=== PATIENT | male | born 1960 | race Caucasian/White ===

== ENCOUNTER 2020-06-15 09:15 | Outpatient (REF) | payer OTHER, SELFPAY ==
[2020-06-15 10:14] LABS: Hematocrit 46.3 % (42-52); Hemoglobin 15.4 g/dl (14.0-18.0); Mean Corpuscular HGB Conc 33.3 g/dl (31.0-36.0); Mean Corpuscular Hemoglobin 30.7 pg (27.0-33.0); Mean Corpuscular Volume 92.4 fL (80-98); Mean Platelet Volume 9.9 fL (9.4-12.4); Platelet Count 220 X10*3/uL (160-400); Red Blood Count 5.01 X10*6/uL (4.60-5.80); Red Cell Distribution Width 14.9 % (11.0-16.0); White Blood Count 6.6 X10*3/uL (4.8-10.8)
[2020-06-15 10:48] LABS: Alanine Aminotransferase 16 U/L (0-40); Albumin Level 4.2 g/dL (3.5-5.0); Alkaline Phosphatase 56 U/L (39-117); Anion Gap 12 (12-20); Aspartate Amino Transferase 18 U/L (5-37); Bilirubin Direct 0.4 mg/dL (0.0-0.5); Carbon Dioxide 28 mmol/L (22-29); Chloride 105 mmol/L (96-108); Cholesterol 209 mg/dL; Estimated Glomerular Filt Rate > 60; Glucose Random 82 mg/dL (60-115); HDL Cholesterol 69 mg/dL; LDL Cholesterol Calculated 129 mg/dl; Potassium 4.5 mmol/L (3.3-5.1); Sodium 140 mmol/L (135-145); Total Protein 6.4 g/dL (6.5-8.0); Triglycerides 57 mg/dL
[2020-06-15 10:53] LABS: Blood Urea Nitrogen 13 mg/dL (9-16); Calcium 8.8 mg/dL (8.4-10.2)
[2020-06-15 10:54] LABS: Glucose Urine UA NEG (NEG); Leukocyte Esterase Urine NEG (NEG); Nitrite Urine NEG (NEG); Specific Gravity - Urine 1.015 (1.005-1.025); Urine Blood NEG (NEG); Urine Ketones NEG (NEG); Urine Protein NEG (NEG-TRACE)
[2020-06-15 10:59] LABS: Thyroid Stimulating Hormone 0.56 uIU/mL (0.32-4.0)
[2020-06-15 11:01] LABS: Appearance Urine CLEAR; Color Urine YELLOW
[2020-06-18 12:16] LABS: Vitamin D 25-OH, D2 <4 ng/mL; Vitamin D 25-OH, D3 43 ng/mL; Vitamin D 25-OH, Total 43 ng/mL (30-100)
== END 2020-06-15 09:16 | disposition home or self-care (01) ==
LOC: HO.LAB 09:15
PROVIDERS: PCP Internal Medicine; Visit Provider Internal Medicine
DX: E78.00 Pure hypercholesterolemia, unspecified (principal)
CPT/HCPCS: 36415; 80048; 80061; 80076; 81003; 82306; 84443; 85027

== ENCOUNTER 2020-07-05 14:51 | Outpatient (REF) | payer OTHER, SELFPAY ==
--- NOTE | ~2020-07-05 | XR_ITS ---
EXAMINATION: XR KNEE, LEFT XR KNEE STANDING, BILATERAL CLINICAL INFORMATION: Left knee pain. COMPARISON: None TECHNIQUE: Standing AP view of both knees and lateral and sunrise view of the left knee. FINDINGS: Left: Bone alignment is normal. No fracture or dislocation is seen. There are small osteophytes at the patellofemoral joint. Joint spaces are otherwise normal. There is no joint effusion. Standing AP view of the right knee is unremarkable. XR/XR knee LT 2V IMPRESSION: Small osteophytes at the patellofemoral joint otherwise unremarkable examination.
--- NOTE | ~2020-07-05 | XR_ITS ---
EXAMINATION: XR KNEE, LEFT XR KNEE STANDING, BILATERAL CLINICAL INFORMATION: Left knee pain. COMPARISON: None TECHNIQUE: Standing AP view of both knees and lateral and sunrise view of the left knee. FINDINGS: Left: Bone alignment is normal. No fracture or dislocation is seen. There are small osteophytes at the patellofemoral joint. Joint spaces are otherwise normal. There is no joint effusion. Standing AP view of the right knee is unremarkable. XR/XR knee standing BI IMPRESSION: Small osteophytes at the patellofemoral joint otherwise unremarkable examination.
== END 2020-07-05 14:52 | disposition home or self-care (01) ==
LOC: HO.HOSX 14:51
PROVIDERS: Visit Provider Orthopaedic Surgery
DX: M25.561 Pain in right knee (principal); M25.562 Pain in left knee
CPT/HCPCS: 73560; 73565

== ENCOUNTER → 2020-07-06 09:03 | Outpatient (BNVA) | payer OTHER, SELFPAY | PROVIDERS: PCP Internal Medicine; Visit Provider Orthopaedic Surgery | DX: M22.2X2 Patellofemoral disorders, left knee (principal) | CPT/HCPCS: 99202 ==

== ENCOUNTER → 2020-07-07 15:01 | Outpatient (BNVA) | payer OTHER, SELFPAY | PROVIDERS: PCP Internal Medicine; Visit Provider Surgery Vascular Surgery | DX: I83.12 Varicose veins of left lower extremity with inflammation (principal) | CPT/HCPCS: 99202 ==

== ENCOUNTER 2020-07-14 12:55 | Outpatient (REF) | payer OTHER, SELFPAY ==
--- NOTE | ~2020-07-14 | US_ITS ---
EXAMINATION: BILATERAL LOWER EXTREMITY VENOUS ULTRASOUND (Reflux Exam) CLINICAL INDICATION: This is a 60-year-old male with a history of great saphenous vein ablation on the left. Varicose veins. COMPARISON: None. TECHNIQUE: Color flow triplex imaging and compression Doppler was performed to evaluate both the deep and the superficial systems bilaterally. To evaluate the superficial system, the examination was performed in the upright position. Color-flow Doppler ultrasound and compression ultrasound were utilized. In addition, maneuvers were utilized to demonstrate reflux. FINDINGS: 1. DEEP VENOUS ULTRASOUND OF THE RIGHT LOWER EXTREMITY: Common Femoral Vein: There is reflux seen in the left common femoral vein. Femoral vein: Compressible, normal color flow and augmentation. No reflux. The reflux time is 2588 ms. Popliteal Vein: There is reflux seen in the left popliteal vein. The reflux time is 2924 ms. Deep Reflux: There is evidence of reflux in the deep system in either the common femoral vein or the popliteal vein. . There is no evidence of a Delgado's cyst. 2. SUPERFICIAL ULTRASOUND WITH DOPPLER OF RIGHT LOWER EXTREMITY GREAT SAPHENOUS VEIN: Saphenofemoral junction: 0.7 cm. There is no reflux at the junction. Mid thigh: 0.3 cm. There is reflux of 1628 ms. Above knee: 0.4 cm. There is no reflux at this level. Below knee: 0.5 cm. No reflux was detected. Mid calf: 0.3 cm. There is no reflux at this level and below. Ankle: 0.2 cm GSV REFLUX: No evidence of reflux. DUPLICATED GREAT SAPHENOUS VEIN: There is a 0.3 cm duplicated lateral great saphenous vein without evidence of reflux. SMALL SAPHENOUS VEIN: Upper: 0.3 cm Lower: 0.3 cm SSV REFLUX: No evidence of reflux. VEIN OF GIACOMINI: None Imaged. PERFORATORS: There are 0.3 cm perforators in the proximal calf with a reflux time of 820 ms. VARICOSITIES: There are 0.5 and 0.4 cm varicose veins at the knee in the proximal calf with greater than 3 seconds of reflux. 3. DEEP VENOUS ULTRASOUND OF THE LEFT LOWER EXTREMITY: Common Femoral Vein: Compressible, normal respiratory variation and augmented flow. Femoral vein: There is deep vein reflux in the femoral vein of greater than 3 seconds. Popliteal Vein: Compressible, normal augmentation. Deep Reflux: There is some evidence of reflux in the deep system in either the common femoral vein or the popliteal vein. There is a 3.8 x 1.3 x 1.6 cm left popliteal Delgado's cyst. 4. SUPERFICIAL ULTRASOUND WITH DOPPLER OF LEFT LOWER EXTREMITY GREAT SAPHENOUS VEIN: Saphenofemoral junction: 0.5 cm. There is no reflux. The remainder the great saphenous vein is occluded consistent with previous therapy. GSV REFLUX: No evidence of reflux. DUPLICATED GREAT SAPHENOUS VEIN: There is a 0.4 cm duplicated lateral great saphenous vein without reflux. SMALL SAPHENOUS VEIN: Upper: 0.2 cm Lower: 0.2 cm SSV REFLUX: No evidence of reflux. VEIN OF GIACOMINI: None Imaged. PERFORATORS: There is a 0.3 cm tray line supervisor in the mid calf without reflux. VARICOSITIES: There are 0.4 and 1.1 cm varicose veins in the left leg. At the popliteal fossa there is reflux of 2916 ms. There are chronic changes within the varicose veins suggesting previous superficial thrombophlebitis. Superficial fat thrombophlebitis was present on a previous study dated 10/05/2008. This may be the remnant. US/US venous duplex LE BI IMPRESSION: 1. There is a patent right great saphenous vein without evidence of reflux at the junction. There is isolated reflux in the mid thigh. 2. 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 3. There is a patent right small saphenous vein without evidence of reflux. 4. There is deep vein reflux in the right common femoral vein and right popliteal vein, respectively. 5. There are varicose veins and tray line supervisor's with reflux in the right lower extremity. 6. The left great saphenous vein appears to be occluded and without reflux. 7. There is a duplicated left lateral great saphenous vein without reflux. 8. There is a left small saphenous vein without evidence of reflux. 9. There are varicose veins in the left leg with reflux. There is some fibrinous changes within these veins consistent with thrombophlebitis. The acuity of the thrombophlebitis is unclear. This may be residual from a previous event dated 10/05/2008.
== END 2020-07-14 12:56 | disposition home or self-care (01) ==
LOC: HO.US 12:55
PROVIDERS: PCP Internal Medicine; Visit Provider Surgery Vascular Surgery
DX: I83.893 Varicose veins of bilateral lower extremities with other complications (principal); I83.12 Varicose veins of left lower extremity with inflammation
CPT/HCPCS: 93970

== ENCOUNTER → 2020-07-19 09:26 | Outpatient (BNVA) | payer OTHER, SELFPAY | PROVIDERS: PCP Internal Medicine; Visit Provider Surgery Vascular Surgery ==

== ENCOUNTER 2020-07-25 11:30 | Day surgery (SDC) | payer OTHER, SELFPAY ==
--- NOTE | 2020-07-21 11:49 | HO.ANESPROP2 ---
Documented by User: Charito Pandya 07/21/20 11:50 HPI - Anesthesia Eval Consult details Narrative: 60yo M for Left Phlebectomy,micro PMFSH Active Problems Active Problems: All Active Problems (Updated 07/07/20 @ 15:28 by Roman Boyd MD) Varicose veins of left lower extremity with inflammation (Acute) Patellofemoral pain syndrome of left knee (Acute) Hypercholesterolemia (Acute) Left knee pain (Acute) Varicose veins of bilateral lower extremities with pain (Acute) Past Medical History Medical History Hypercholesterolemia Varicose veins of bilateral lower extremities with pain Family History Family History Father Lymphoma Mother Dementia Social History Social History Smoking Status: Current every day smoker Tobacco Type: Cigarette and E-Cigarette Cigarettes Per Day: 1 Use of substances other than those prescribed or required for medical reasons: No Have you been hit, kicked, punched, or otherwise hurt by someone within the past year? 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 Handed Meds Allergies Allergy/AdvReac Type Severity Reaction Status Date / Time nicotine Allergy Intermediate HIVES TO Verified 07/25/20 12:09 NICOTINE PATCH ciprofloxacin [CIPROFLOXACIN] Allergy Unknown HIVES Verified 07/25/20 12:09 Cipro Allergy Unknown hives Uncoded 07/25/20 12:09 Home Medications Medication Instructions Recorded Confirmed Last Taken Type ibuprofen 200 mg tablet 200 mg PO Q6H PRN 06/15/20 Unknown History Exam Exam Date and Time: July 21, 2020 114 Assessment and Plan Assessment Anesthesia Assessment: Chart Reviewed Documented by User: Yulissa Conley 07/25/20 12:58 PMFSH Past Medical History Medical History Hypercholesterolemia Varicose veins of bilateral lower extremities with pain Family History Family History Father Lymphoma Mother Dementia Social History Social History Smoking Status: Current every day smoker Tobacco Type: Cigarette and E-Cigarette Cigarettes Per Day: 1 Use of substances other than those prescribed or required for medical reasons: No Have you been hit, kicked, punched, or otherwise hurt by someone within the past year? 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 Handed Meds Allergies Allergy/AdvReac Type Severity Reaction Status Date / Time nicotine Allergy Intermediate HIVES TO Verified 07/25/20 12:09 NICOTINE PATCH ciprofloxacin [CIPROFLOXACIN] Allergy Unknown HIVES Verified 07/25/20 12:09 Cipro Allergy Unknown hives Uncoded 07/25/20 12:09 Home Medications Medication Instructions Recorded Confirmed Last Taken Type ibuprofen 200 mg tablet 200 mg PO Q6H PRN 06/15/20 Unknown History Exam Airway Mallampati Class: II TM Dist: >3cm Neck ROM: Full Heart: RrR Lungs: CTA BL Other: patient tapered off predinose for allergy/repiratory Assessment and Plan Assessment Anesthesia Assessment: Anesthesia Plan Discussed and Chart Reviewed Final Anesthetic Review NPO: Yes ASA Class: III Final Preanesthetic Review: No Changes in Pt Med Stat and Consent Obtained/Reviewed Patient Risk: Intermediate Procedure Risk: Intermediate Anesthetic Plan Anesthetic Plan: GA Disposition: Standard PACU
[2020-07-25] VITALS (9 sets, daily range): BP systolic 132–149; BP diastolic 67–86; PULSE 59–67; RESP 12–18; TEMP 36.1–37.1; O2SAT 96–100; BMI 24.4
[2020-07-25] MEDS: Lactated Ringers 1,000 ML 100 ML IVCONT (12:26)
--- NOTE | 2020-07-25 13:17 | MHC.SHP ---
Pre-Procedural Eval Section B Chief Complaint: varicose veins Allergies: Allergies Allergy/AdvReac Type Severity Reaction Status Date / Time nicotine Allergy Intermediate HIVES TO Verified 07/25/20 12:09 NICOTINE PATCH ciprofloxacin [CIPROFLOXACIN] Allergy Unknown HIVES Verified 07/25/20 12:09 Cipro Allergy Unknown hives Uncoded 07/25/20 12:09 Plan I have reviewed the history and physical and performed a pertinent physical examination on my patient. No changes have occurred unless specified.
--- NOTE | 2020-07-25 14:47 | W.PM.OPN ---
Operative Note Operative Note Date of Service: 07/25/20 Narrative: Pre and postoperative Diagnosis: Left Leg varicose veins with inflammation Procedure: 1. Left leg Microphlebectomy - (25) 2. Ligation venous cluster Anesthesia: General Specimens: 1 Drains: None Estimated blood loss minimal Varicose veins were marked in the standing position on the left leg and the patient was then placed in the supine position. The left lower extremity was prepared and draped to allow knee flexion in the sterile field. The patient had large superficial varicose veins with significant symptoms of pain. It was therefore determined to perform microphlebectomies of the clusters of varicose veins. The patient had bulging varicose veins which were previously marked in the standing position. A small stab incision was made longitudinally directly overlying the varicose vein in the calf and the varicose vein was grasped with a hemostat aided by a vein hook. It was then dissected as far proximally and distally as possible and avulsed. A total of 25 stab incisions were made and the procedure of stab phlebectomies was repeated 25 times. In addition a left posterior calf venous cluster was identified. We made an incision over this area. We identified the base and this was ligated with a 3-0 poly Sorb suture. Residual varicosities were removed from this posterior calf incision. Hemostasis was checked and stab incision sites were closed with steri-strips and sterile dressing was given with gauze and krilex wrap followed by an palma bandage. There were no complications and blood loss was minimal. Post-Op instructions were given and a follow-up appointment was recommended.
[2020-07-25] MEDS: oxyCODONE HCl Immed Release 5 MG TABLET PO (15:08)
[2020-07-25] MEDS: fentaNYL citrate/PF 100 MCG/2 ML VIAL 50 MCG IVPUSH (15:08)
== END 2020-07-25 16:10 | disposition home or self-care (01) ==
PROVIDERS: PCP Internal Medicine; Visit Provider Surgery Vascular Surgery
PROC: (CPT 37766; principal; 2020-07-25 13:00)
DX: I83.12 Varicose veins of left lower extremity with inflammation (principal); F17.210 Nicotine dependence, cigarettes, uncomplicated; F17.290 Nicotine dependence, other tobacco product, uncomplicated; Z88.1 Allergy status to other antibiotic agents
CPT/HCPCS: 37766; 37785; 88304; J0690; J1100; J2250; J2405; J3010

== ENCOUNTER → 2020-08-09 09:07 | Outpatient (BNVA) | payer OTHER, SELFPAY | PROVIDERS: PCP Internal Medicine; Visit Provider Surgery Vascular Surgery ==

== ENCOUNTER 2020-12-23 08:25 | Outpatient (REF) | payer OTHER, SELFPAY ==
[2020-12-23 12:07] LABS: Alanine Aminotransferase 28 U/L (0-40); Albumin Level 4.1 g/dL (3.5-5.0); Alkaline Phosphatase 79 U/L (39-117); Aspartate Amino Transferase 36 U/L (5-37); Bilirubin Direct 0.3 mg/dL (0.0-0.5); Bilirubin Total 0.8 mg/dL (0.0-1.0); Total Protein 6.6 g/dL (6.5-8.0)
== END 2020-12-23 08:26 | disposition home or self-care (01) ==
LOC: HO.HMGCLDS 08:25
PROVIDERS: PCP Internal Medicine; Visit Provider Physician Assistant
DX: B37.2 Candidiasis of skin and nail (principal)
CPT/HCPCS: 36415; 80076

== ENCOUNTER 2021-05-08 13:03 | Outpatient (REF) | payer OTHER, SELFPAY ==
[2021-05-08 14:16] LABS: Hematocrit 44.8 % (42.0-52.0); Hemoglobin 15.2 g/dl (14.0-18.0); Mean Corpuscular HGB Conc 33.9 g/dl (31.0-36.0); Mean Corpuscular Volume 91.2 fL (80.0-98.0); Mean Platelet Volume 9.7 fL (9.4-12.4); Platelet Count 247 X10*3/uL (160-400); Red Blood Count 4.91 X10*6/uL (4.60-5.80); Red Cell Distribution Width 14.6 % (11.0-16.0); White Blood Count 10.1 X10*3/uL (4.8-10.8)
[2021-05-08 14:31] LABS: Appearance Urine CLEAR; Color Urine STRAW; Glucose Urine UA NEG (NEG); Leukocyte Esterase Urine NEG (NEG); Nitrite Urine NEG (NEG); Urine Blood NEG (NEG); Urine Ketones NEG (NEG); Urine Protein NEG (NEG-TRACE)
[2021-05-08 14:40] LABS: Alanine Aminotransferase 25 U/L (0-40); Albumin Level 4.1 g/dL (3.5-5.0); Alkaline Phosphatase 64 U/L (39-117); Anion Gap 13 (12-20); Aspartate Amino Transferase 25 U/L (5-37); Bilirubin Direct 0.2 mg/dL (0.0-0.5); Bilirubin Total 0.5 mg/dL (0.0-1.0); Blood Urea Nitrogen 15 mg/dL (9-16); Calcium 9.6 mg/dL (8.4-10.2); Carbon Dioxide 27 mmol/L (22-29); Chloride 105 mmol/L (96-108); Cholesterol 260 mg/dL; Estimated Glomerular Filt Rate > 60; Glucose Random 88 mg/dL (60-115); HDL Cholesterol 54 mg/dL; LDL Cholesterol Calculated 187 mg/dl; Potassium 4.7 mmol/L (3.3-5.1); Sodium 140 mmol/L (135-145); Total Protein 6.5 g/dL (6.5-8.0); Triglycerides 97 mg/dL
[2021-05-08 15:02] LABS: Thyroid Stimulating Hormone 0.96 uIU/mL (0.32-4.0)
[2021-05-12 16:06] LABS: Testosterone, Free 56.3 pg/mL (35.0-155.0); Testosterone, Total 626 ng/dL (250-1100)
== END 2021-05-08 13:04 | disposition home or self-care (01) ==
LOC: HO.LAB 13:03
PROVIDERS: PCP Internal Medicine; Visit Provider Internal Medicine
DX: E78.00 Pure hypercholesterolemia, unspecified (principal); I83.813 Varicose veins of bilateral lower extremities with pain
CPT/HCPCS: 36415; 80048; 80061; 80076; 81003; 84402; 84403; 84443; 85027

== ENCOUNTER 2022-02-08 13:47 | Emergency (ER) | payer SELFPAY | END 2022-02-08 14:34 | disposition left against medical advice (07) | PROVIDERS: Emergency Provider Emergency Medicine; PCP Internal Medicine | DX: M79.604 Pain in right leg (principal) ==

== ENCOUNTER 2022-04-13 08:38 | Outpatient (REF) | payer OTHER, SELFPAY ==
[2022-04-13 09:25] LABS: Hematocrit 48.3 % (42.0-52.0); Mean Corpuscular HGB Conc 33.1 g/dl (31.0-36.0); Mean Corpuscular Hemoglobin 30.3 pg (27.0-33.0); Mean Corpuscular Volume 91.5 fL (80.0-98.0); Mean Platelet Volume 9.7 fL (9.4-12.4); Platelet Count 233 X10*3/uL (160-400); Red Blood Count 5.28 X10*6/uL (4.60-5.80); White Blood Count 6.1 X10*3/uL (4.8-10.8)
[2022-04-13 09:57] LABS: Alanine Aminotransferase 49 U/L (0-40); Albumin Level 4.3 g/dL (3.5-5.0); Alkaline Phosphatase 79 U/L (39-117); Anion Gap 11 (12-20); Aspartate Amino Transferase 36 U/L (5-37); Bilirubin Direct 0.4 mg/dL (0.0-0.5); Bilirubin Total 1.7 mg/dL (0.0-1.0); Blood Urea Nitrogen 15 mg/dL (9-16); Calcium 9.5 mg/dL (8.4-10.2); Carbon Dioxide 31 mmol/L (22-29); Chloride 102 mmol/L (96-108); Cholesterol 175 mg/dL; Estimated Glomerular Filt Rate > 60; Glucose Random 91 mg/dL (60-115); HDL Cholesterol 45 mg/dL; LDL Cholesterol Calculated 111 mg/dl; Potassium 4.4 mmol/L (3.3-5.1); Sodium 140 mmol/L (135-145); Total Protein 6.7 g/dL (6.5-8.0); Triglycerides 95 mg/dL
== END 2022-04-13 08:39 | disposition home or self-care (01) ==
LOC: HO.LAB 08:38
PROVIDERS: PCP Internal Medicine; Visit Provider Internal Medicine
DX: M67.912 Unspecified disorder of synovium and tendon, left shoulder (principal); I83.12 Varicose veins of left lower extremity with inflammation; I82.401 Acute embolism and thrombosis of unspecified deep veins of right lower extremity; E78.00 Pure hypercholesterolemia, unspecified; F17.200 Nicotine dependence, unspecified, uncomplicated; Z71.6 Tobacco abuse counseling
CPT/HCPCS: 20610; 36415; 80048; 80061; 80076; 84443; 85027; J1100

== ENCOUNTER 2022-04-13 08:51 | Outpatient (REF) | payer OTHER, SELFPAY ==
--- NOTE | ~2022-04-13 | XR_ITS ---
EXAMINATION: XR SHOULDER, LEFT CLINICAL INFORMATION: Left shoulder pain COMPARISON: None TECHNIQUE: AP external rotation, Grashey, scapular Y, and axillary views of the left shoulder. FINDINGS: The bones and soft tissues are normal. No fracture. Glenohumeral and acromioclavicular alignment is anatomic with normal joint space. No abnormal soft tissue calcifications. XR/XR shoulder LT min 2V IMPRESSION: Unremarkable left shoulder.
== END 2022-04-13 08:52 | disposition home or self-care (01) ==
LOC: HO.HOSX 08:51
PROVIDERS: Visit Provider Orthopaedic Surgery
DX: M25.512 Pain in left shoulder (principal)
CPT/HCPCS: 73030

== ENCOUNTER → 2022-05-07 11:21 | Outpatient (BNVA) | payer OTHER, SELFPAY | PROVIDERS: PCP Internal Medicine; Visit Provider Orthopaedic Surgery | DX: Z13.89 Encounter for screening for other disorder (principal) ==

== ENCOUNTER → 2022-05-15 13:19 | Outpatient (BNVA) | payer OTHER, SELFPAY | PROVIDERS: PCP Internal Medicine; Visit Provider Surgery Vascular Surgery | DX: Z13.89 Encounter for screening for other disorder (principal) ==

== ENCOUNTER 2022-05-18 09:00 | Outpatient (RCR) | payer OTHER, SELFPAY ==
--- NOTE | 2022-04-19 14:05 | MHC.PT.EP ---
[facility] [place] Office [place] Office [place] Office [address] Cyndee Poe [address] [phone] F: [phone] F: [phone] F: [phone] F: [phone] Physical Therapy Plan of Care Date of Evaluation: Date of Surgery: n/a Diagnosis: dysfunction of rotator cuff Assessment: Patient is a 62 year old male presenting to PT with complaints of pain in his L shoulder. Pt reports onset of pain began September 2021 due to hearing a pop when lifting a piece of drywall. He presents today with impairments in pain, ROM, shoulder strength, posture. 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 Pt expresses senior living goal of returning to PLOF, and is motivated to work towards this in PT. Clinical presentation today is most consistent with signs and sx associated with possible RC involvement and pt will benefit from skilled PT to address the following problems and impairments noted upon evaluation: pain, ROM, shoulder strength, posture. These problems limit the patient with the following functional activities: reaching, lifting, ADLs. The prescribed treatment plan of care is medically necessary. Co-morbidities of DVT February 2022 and currently taking eliquis were identified and taken into considerations of plan of care. Pt was educated on HEP, role of PT, prognosis, POC. Frequency and Duration: The patient will be seen 2 x week x 4 weeks Short Term Goals: Pt will demonstrate improved ROM by 20 degrees in all directions in 2 weeks. Pt will demonstrate shoulder strength improved to at least 3/5 in 2 weeks. Pt will demonstrate compliance with initial HEP in 2 weeks. Family Living Educator Goals: Pt will demonstrate improved SPADI score by 13 points in 4 weeks for improved functional mobility. Pt will demonstrate improved ability to reach and lift household items for return to PLOF in 4 weeks. Pt will demonstrate improved ability to don and doff jacket and shirts in 4 weeks for improved functional mobility. Treatment Plan: Modalities to reduce pain, spasms and effusion. Manual therapy to restore motion and function. Therapeutic exercise to improve strength and flexibility. Neuromuscular re-education for posture and balance. Therapeutic activities to return to functional activities of daily living. Electronically signed by: Marycruz Durand, PT, DPT, ATC Please sign and return to therapist. Thank you for your referral.
--- NOTE | 2022-06-21 08:13 | MHC.PT.DC ---
[facility] [place] Office [place] Office [place] Office [address] Cyndee Poe [address] [facility] [phone] F: [phone] F: [phone] F: [phone] F: [phone] Physical Therapy Discharge Report Diagnosis: dysfunction of rotator cuff Date of Surgery: n/a Date of Evaluation: 04/19/22 Date of Discharge: 06/21/22 Treatments to Date: 4 Cancellations to Date: 1 No Shows to Date: 0 Discharge Status: Discharge Summary: Pt has not returned to skilled PT in >30 days. Pt to be d/c at this time. Electronically signed by: Marycruz Durand, PT, DPT, ATC Please sign and return to therapist. Thank you for your referral.
== END 2022-06-21 08:13 | disposition home or self-care (01) ==
LOC: HO.PTCHIC 09:00
PROVIDERS: PCP Internal Medicine; Visit Provider Orthopaedic Surgery
DX: M75.02 Adhesive capsulitis of left shoulder (principal); M67.912 Unspecified disorder of synovium and tendon, left shoulder
CPT/HCPCS: 97110; 97161

== ENCOUNTER 2023-01-21 13:13 | Emergency (ER) | payer OTHER, SELFPAY ==
--- NOTE | ~2023-01-21 | CT_ITS ---
EXAMINATION: CT SOFT TISSUE NECK WITH CONTRAST CLINICAL INFORMATION: Swelling. Known facial abscess. COMPARISON: Brain MRI 08/09/2021. TECHNIQUE: Following the intravenous administration of 60 mL of Omnipaque 350 intravenous contrast, helical imaging was performed in the axial plane with generation of coronal and sagittal reformatted images. This CT examination was performed using dose optimization techniques as appropriate, variously including the following: *Automated exposure control *Adjustment of mA and/or kV according to patient size (this includes techniques or standardized protocols for targeted exams where dose is matched to indication/reason for exam; i.e. extremities or head) *Use of iterative reconstruction technique DLP: 649 mGy-cm FINDINGS: There is a periapical lucencies surrounding the root of the right first mandibular molar that erodes through the buccal cortex of the right mandibular body. This finding is well depicted on axial image 62 of 157 series 4. Due to the extent of streak artifact related to the patient's dental hardware is difficult to exclude the possibility of a small adjoining subperiosteal abscess. Extensive swelling within the subcutaneous soft tissues of the right face representing edema and/or cellulitis. There are a few small reactive right level I and II cervical lymph nodes. No evidence of septic thrombophlebitis. Pharyngeal mucosal spaces are grossly symmetric. Parapharyngeal and retromaxillary fat is preserved. Head Of Cytogenetics spaces are grossly symmetric. The tongue base and epiglottis are normal. Preepiglottic fat is preserved. Glottic and subglottic airways are patent. The thyroid gland is normal and the remainder of the visualized visceral soft tissues are normal. Lung apices are clear. The aortic arch apex is normal. Cervical carotid and vertebral arteries are grossly patent. The skull base is intact. No mastoid middle ear effusion. Limited visualization of intracranial anatomy reveals no abnormal finding. Specifically no midline shift or hydrocephalus. There is moderate to severe paranasal sinus disease. CT/CT soft tissue neck w IV con IMPRESSION: There is a periapical lucency surrounding the root of the right first mandibular molar that erodes through the buccal cortex of the right mandibular body. Due to the extent of streak artifact related to the patient's dental hardware is difficult to exclude the possibility of a small adjoining subperiosteal abscess. Extensive swelling within the subcutaneous soft tissues of the right face representing edema and/or cellulitis. No evidence of septic thrombophlebitis.
--- NOTE | 2023-01-21 13:26 | ED.GENADULT ---
HPI - General Adult General Chief complaint: Dental/Oral Stated complaint: Abscess in mouth Time Seen by Provider: 01/21/23 14:28 Source: patient Mode of arrival: ambulatory Limitations: no limitations History of Present Illness HPI narrative: 62 yo male with history of DVT on AC therapy, HLD, asthma presents to the ER with complaints of right-sided facial swelling for 2 days. Patient went to urgent care yesterday and was started on Augmentin. He has taken 3 doses. This morning when he woke up he noticed more swelling underneath his chin which prompted him to come to the emergency room. However, now he feels it is less swollen. He denies any fevers, chills, difficulty swallowing or difficulty breathing Related Data Home Medications Medication Instructions Recorded Confirmed budesonide 0.5 mg/2 mL suspension 0.75 mg inhalation BID 05/10/21 07/04/22 for nebulization fluticasone 250 mcg-salmeterol 50 1 ea inhalation BID 08/15/21 07/04/22 mcg/dose blistr powdr for inhalation (Advair Diskus) montelukast 10 mg tablet 10 mg PO QPM 08/15/21 07/04/22 acetaminophen 325 mg capsule 650 mg PO Q6H PRN Pain, Moderate 03/08/22 07/04/22 (Tylenol) Previous Rx's Medication Instructions Recorded atorvastatin 20 mg tablet 20 mg PO BEDTIME #90 tabs 03/07/22 albuterol sulfate 90 mcg/actuation 1 inh inhalation QID 30 days #8.5 12/04/22 aerosol inhaler (ProAir HFA) grams apixaban 5 mg tablet (Eliquis) 5 mg PO BID #180 tabs 12/06/22 Allergies Allergy/AdvReac Type Severity Reaction Status Date / Time ciprofloxacin [CIPROFLOXACIN] Allergy Unknown HIVES Verified 07/04/22 14:23 Cipro Allergy Unknown hives Uncoded 05/15/22 13:33 Review of Systems Review of Systems: Yes all other systems are reviewed and are negative Constitutional: Constitutional: Reports no additional constitutional complaints, Denies body ache(s), Denies chills, Denies fever(s), Denies headache(s) and Denies weakness Eyes: Eyes: Reports no additional eye complaints and Denies change in vision ENT: Reports system reviewed and no additional complaints, except as documented, Reports dental pain, Denies dizziness, Reports facial pain, Denies headache(s), Denies nasal congestion, Denies nasal discharge and Denies neck pain Cardiovascular: Cardiovascular: Reports no additional cardiovascular complaints, Denies chest pain, Denies leg edema and Denies dyspnea Respiratory: Respiratory: Reports no additional respiratory complaints, Denies cough and Denies dyspnea Gastrointestinal: Gastrointestinal: Reports no additional gastrointestinal complaints, Denies abdominal pain, Denies diarrhea, Denies nausea and Denies vomiting Genitourinary: Genitourinary: Denies urinary incontinence Musculoskeletal: Musculoskeletal: Reports no additional musculoskeletal complaints, Denies back pain, Denies arthralgias, Denies joint swelling, Denies neck pain, Denies numbness and Denies tingling Integumentary/Breasts: Skin/Breast: Reports system reviewed and no additional complaints, except as docu and Denies rash Neurologic: Reports system reviewed and no additional complaints, except as documented, Denies Abnormal speech present, Denies dizziness, Denies headache(s), Denies numbness, Denies tingling and Denies weakness PMFSH Past Medical History Attestation statement: The following information was validated with the patient. Source: old records reviewed and nursing notes reviewed Medical History Nicotine dependence, cigarettes, uncomplicated Dysfunction of left rotator cuff Tobacco use disorder Hypercholesterolemia Varicose veins of bilateral lower extremities with pain Surgical History History of umbilical hernia repair History of colon resection (~10/2011) History of reversal of ileostomy (~12/2011) History of right inguinal hernia repair History of colonoscopy History of vein stripping History of nasal polypectomy Family History Family History Father Lymphoma Mother Dementia Social History Social History Household Members: None Housing: House Alcohol intake: current Alcohol intake frequency: a few times a month Patient Tobacco Use Status: Former Tobacco user Tobacco use type: Cigarette e-Cigarette/Vaping Use: Currently Using Second Hand Smoke Exposure: No Advance Directives: No Advance Directives Information Provided: Yes service: Yes ([employer]) Current occupational status: unemployed Current occupation: Dry wall finishing - Right Handed Cognitive needs: No Hearing needs: No Vision needs: Yes (glasses) Physical Exam ED Vital Signs: Vital Signs - 24 hr 01/21/23 13:27 01/21/23 15:49 Temperature 97.3 F 97 F Pulse Rate 94 68 Respiratory Rate 18 18 Blood Pressure 136/100 H 139/83 Pulse Oximetry 95 100 Oxygen Delivery Method Room Air Room Air BMI result Body Mass Index 24.1 Const General: cooperative, healthy appearing, comfortable and no acute distress Orientation/consciousness: patient oriented x3 Limitations: no limitations HENMT Other: no trismus no submental swelling Head: Yes normal to inspection Head images: 1. +swelling 2. +swelling but soft and does not cross midline of submental area Ears: hearing grossly normal bilaterally General nose exam: Normal external nose present Face and sinus: Yes normal facial exam Mouth: Normal oral and palatal mucosa present Teeth image: 1. +caries, I do not appreciate an abscess Throat: Yes posterior oropharynx normal, Yes tonsils normal and Yes uvula midline Eyes General: appearance normal, both eyes and all related structures Pupils: Equal, round and reactive pupils present Neck Neck: Yes normal visual inspection Chest Chest palpation & inspection: normal inspection of the chest Resp Effort & Inspection: normal respiratory effort Auscultation: clear to auscultation bilaterally Cardio Rate: regular rate Rhythm: regular rhythm Peripheral pulses: Peripheral pulses 2+ throughout GI Inspection: Yes normal to inspection Palpation (GI): Soft to palpation and nontender Auscultation: normal bowel sounds Back/Spine/Pelvis Thoracic/Lumbar Spine: thoracic and lumbar spine normal to inspection Skin General skin exam: no rashes or lesions noted Neuro General: patient oriented x3, no focal motor deficits and normal sensation to monofilament Cranial nerves: Yes Equal, round and reactive pupils present Cognition (Neuro): normal cognition Speech: No Abnormal speech present Gait exam (Neuro): Normal gait present Motor exam (neuro): 5/5 motor strength present throughout Extrem General: Yes normal to inspection Course Course Course Narrative: RME performed by Abigail Duke PA-C. Patient is a 62 year old assigned male at presenting to the emergency department with right sided facial abscess. Patient was seen at an urgent care yesterday where he was given Augmentin and the swelling has gone down some however, now parts of his throat are swollen. Labs, imaging, and swabs ordered. Patient placed back in the waiting room pending room availability and results. Reevaluation(s) Reevaluation #1: CT shows There is a periapical lucency surrounding the root of the right first mandibular molar that erodes through the buccal cortex of the right mandibular body. Due to the extent of streak artifact related to the patient's dental hardware is difficult to exclude the possibility of a small adjoining subperiosteal abscess. Extensive swelling within the subcutaneous soft tissues of the right face representing edema and/or cellulitis. No evidence of septic thrombophlebitis. - patient actually tells me that he feels that overall it is improving and so I do not think could be beneficial changes antibiotic at this time. I would recommend that he continue the antibiotic and take Motrin or Tylenol as needed if able for pain or fever. He has a follow-up appointment in 1 week to see the dentist which I recommend he maintain. He should continue with warm compresses and return for any worsening signs or symptoms. Medications Administered Discontinued Medications Generic Name Dose Route Start Last Admin Trade Name Yonyq PRN Reason Stop Dose Admin Iohexol 100 ml 01/21/23 15:00 01/21/23 15:00 Iohexol 350 Mg/Ml 100 Ml Infus..Btl IV 01/21/23 15:01 60 ml ONCE ONE Administration Medical Decision Making Medical Decision Making [facility] Narrative: 62 yo male with history of DVT on AC therapy, HLD, asthma presents to the ER with complaints of right-sided facial swelling for 2 days. Patient went to urgent care yesterday and was started on Augmentin. He has taken 3 doses. This morning when he woke up he noticed more swelling underneath his chin which prompted him to come to the emergency room. However now he feels it is less swollen. He denies any fevers, chills, difficulty swallowing or difficulty breathing +right sided facial swelling and right submandibular extending to submental but does not cross midline and quite mild with no trismus on exam Will review labs, CT from triage Differential Diagnosis Differential Diagnoses: The differential diagnosis associated with the presentation includes dental abscess, dental infection, low concern for Shabbir's angina Admission/Observation Consideration of admission/observation: Escalation of care including admission/observation considered Lab Data [facility] Lab Attestation statement: I reviewed the patient's lab results. 01/21/23 13:55 01/21/23 13:55 Labs: Lab Results 01/21/23 Range/Units 13:55 WBC 8.5 (4.8-10.8) X10*3/uL RBC 4.94 (4.60-5.80) X10*6/uL Hgb 15.4 (14.0-18.0) g/dl Hct 43.2 (42.0-52.0) % MCV 87.4 (80.0-98.0) fL MCH 31.2 (27.0-33.0) pg MCHC 35.6 (31.0-36.0) g/dl RDW 14.4 (11.0-16.0) % Plt Count 227 (160-400) X10*3/uL MPV 9.2 L (9.4-12.4) fL Immature Gran % (Auto) 0.2 (0.0-0.4) % Neut % (Auto) 67.2 (45-73) % Lymph % (Auto) 20.0 (20-40) % [place] % (Auto) 7.8 (2-11) % Eos % (Auto) 4.1 H (0-4) % Baso % (Auto) 0.7 (0-2) % Lymph # (Auto) 1.7 (1.2-4.9) X10*3/uL [place] # (Auto) 0.7 (0.1-1.2) X10*3/uL Eos # (Auto) 0.4 (0.0-0.4) X10*3/uL Baso # (Auto) 0.1 (0.0-0.2) X10*3/uL Abs Immat Gran (auto) 0.02 (0.00-0.03) X10*3/uL Absolute Neuts (auto) 5.7 (2.0-8.3) x10*3/uL Absolute Nucleated RBC 0.000 (0.0-0.012) X10*3/uL Nucleated RBC % (auto) 0.0 (0.0-0.2) /100WBC ESR 16 H (0-15) MM/HR Sodium 136 (135-145) mmol/L Potassium 3.8 (3.3-5.1) mmol/L Chloride 103 (96-108) mmol/L Carbon Dioxide 25 (22-29) mmol/L Anion Gap 12 (12-20) BUN 11 (9-16) mg/dL Creatinine 0.75 (0.5-1.4) mg/dL Estim Creat Clear Calc 113.5 Estimated GFR > 60 Random Glucose 132 H (60-115) mg/dL Lactic Acid 0.7 (0.5-2.0) mmol/L Calcium 8.8 D (8.4-10.2) mg/dL Magnesium 2.0 (1.6-2.6) mg/dL Total Bilirubin 0.7 (0.0-1.0) mg/dL AST 19 (5-37) U/L ALT 16 (0-40) U/L Alkaline Phosphatase 123 H (39-117) U/L C-Reactive Protein 5.18 H (< or = 0.50) mg/dL Total Protein 6.9 (6.5-8.0) g/dL Albumin 4.0 (3.5-5.0) g/dL Influenza Type A (PCR) NEGATIVE (Negative) Influenza Type B (PCR) NEGATIVE (Negative) RSV RNA Qual (PCR) NEGATIVE (Negative) SARS-CoV-2 RNA (RT-PCR) NEGATIVE (Negative) Independent Interpretation I performed an independent interpretation of an: CT Scan Interpretation: I independently reviewed the CT scan agree with the radiology report Radiology Impression Discussion of test interpretation with radiology: I have reviewed the radiologist's reading. Radiologist Impression: [place] [id number] CT Scan Report Signed Patient: Geraldo Stapleton MR#: [id number] : 1960 Acct:[id number] Age/Sex: 62 / M ADM Date: 01/21/23 Loc: .ED Attending Dr: Ordering Physician: Abigail Duke Date of Service: 01/21/23 Procedure(s): CT soft tissue neck w IV con Accession Number(s): [id number] cc: Abigail Duke; Abner Marina MD~ EXAMINATION: CT SOFT TISSUE NECK WITH CONTRAST CLINICAL INFORMATION: Swelling. Known facial abscess. COMPARISON: Brain MRI 08/09/2021. TECHNIQUE: Following the intravenous administration of 60 mL of Omnipaque 350 intravenous contrast, helical imaging was performed in the axial plane with generation of coronal and sagittal reformatted images. This CT examination was performed using dose optimization techniques as appropriate, variously including the following: *Automated exposure control *Adjustment of mA and/or kV according to patient size (this includes techniques or standardized protocols for targeted exams where dose is matched to indication/reason for exam; i.e. extremities or head) *Use of iterative reconstruction technique DLP: 649 mGy-cm FINDINGS: There is a periapical lucencies surrounding the root of the right first mandibular molar that erodes through the buccal cortex of the right mandibular body. This finding is well depicted on axial image 62 of 157 series 4. Due to the extent of streak artifact related to the patient's dental hardware is difficult to exclude the possibility of a small adjoining subperiosteal abscess. Extensive swelling within the subcutaneous soft tissues of the right face representing edema and/or cellulitis. There are a few small reactive right level I and II cervical lymph nodes. No evidence of septic thrombophlebitis. Pharyngeal mucosal spaces are grossly symmetric. Parapharyngeal and retromaxillary fat is preserved. Toll Collector spaces are grossly symmetric. The tongue base and epiglottis are normal. Preepiglottic fat is preserved. Glottic and subglottic airways are patent. The thyroid gland is normal and the remainder of the visualized visceral soft tissues are normal. Lung apices are clear. The aortic arch apex is normal. Cervical carotid and vertebral arteries are grossly patent. The skull base is intact. No mastoid middle ear effusion. Limited visualization of intracranial anatomy reveals no abnormal finding. Specifically no midline shift or hydrocephalus. There is moderate to severe paranasal sinus disease. CT/CT soft tissue neck w IV con IMPRESSION: There is a periapical lucency surrounding the root of the right first mandibular molar that erodes through the buccal cortex of the right mandibular body. Due to the extent of streak artifact related to the patient's dental hardware is difficult to exclude the possibility of a small adjoining subperiosteal abscess. Extensive swelling within the subcutaneous soft tissues of the right face representing edema and/or cellulitis. No evidence of septic thrombophlebitis. Prescription Management I considered prescription management with: Antibiotic Discharge Plan Discharge Clinical Impression: Cellulitis, face Patient Disposition: Home, Self-Care Instructions: Cellulitis (ED) Additional Instructions: Keep your appointment with the dentist continue your antibiotic continue warm compresses the face return for any worsening symptoms Prescriptions: No Action atorvastatin 20 mg tablet 20 mg PO BEDTIME Qty: 90 1RF albuterol sulfate [ProAir HFA] 90 mcg/actuation HFA aerosol inhaler 1 inh inhalation QID 30 Days Qty: 8.5 3RF Eliquis 5 mg tablet 5 mg PO BID Qty: 180 1RF acetaminophen [Tylenol] 325 mg Capsule 650 mg PO Q6H PRN (Reason: Pain, Moderate) budesonide 0.5 mg/2 mL suspension for nebulization 0.75 mg inhalation BID montelukast 10 mg tablet 10 mg PO QPM fluticasone propion-salmeterol [Advair Diskus] 250-50 mcg/dose blister with device 1 ea inhalation BID Referrals: Abner Marina MD [Primary Care Provider] - 1 week
[2023-01-21 13:27] VITALS: BP 136/100; PULSE 94; RESP 18; TEMP 36.3; O2SAT 95; BMI 24.1
[2023-01-21 14:02] LABS: MANUAL DIFF FLAG NO
[2023-01-21 14:04] LABS: Basophils Absolute Auto 0.1 X10*3/uL (0.0-0.2); Basophils Percent Auto 0.7 % (0-2); Eosinophils Absolute Auto 0.4 X10*3/uL (0.0-0.4); Eosinophils Percent Auto 4.1 % (0-4); Hematocrit 43.2 % (42.0-52.0); Hemoglobin 15.4 g/dl (14.0-18.0); Imm Gran Abs Auto 0.02 X10*3/uL (0.00-0.03); Imm Gran Pct Auto 0.2 % (0.0-0.4); Lymphocytes Absolute Auto 1.7 X10*3/uL (1.2-4.9); Mean Corpuscular HGB Conc 35.6 g/dl (31.0-36.0); Mean Corpuscular Hemoglobin 31.2 pg (27.0-33.0); Mean Corpuscular Volume 87.4 fL (80.0-98.0); Mean Platelet Volume 9.2 fL (9.4-12.4); Monocytes Absolute Auto 0.7 X10*3/uL (0.1-1.2); Monocytes Percent Auto 7.8 % (2-11); Neutrophils Absolute Auto 5.7 x10*3/uL (2.0-8.3); Neutrophils Percent Auto 67.2 % (45-73); Platelet Count 227 X10*3/uL (160-400); Red Blood Count 4.94 X10*6/uL (4.60-5.80); Red Cell Distribution Width 14.4 % (11.0-16.0); White Blood Count 8.5 X10*3/uL (4.8-10.8)
[2023-01-21 14:13] LABS: Lactic Acid 0.7 mmol/L (0.5-2.0)
[2023-01-21 14:18] LABS: Alanine Aminotransferase 16 U/L (0-40); Alkaline Phosphatase 123 U/L (39-117); Anion Gap 12 (12-20); Aspartate Amino Transferase 19 U/L (5-37); Bilirubin Total 0.7 mg/dL (0.0-1.0); Blood Urea Nitrogen 11 mg/dL (9-16); C Reactive Protein 5.18 mg/dL (< or = 0.50); Calcium 8.8 mg/dL (8.4-10.2); Carbon Dioxide 25 mmol/L (22-29); Chloride 103 mmol/L (96-108); Creatinine Clr Calc Pharmacy 113.5; Estimated Glomerular Filt Rate > 60; Glucose Random 132 mg/dL (60-115); Potassium 3.8 mmol/L (3.3-5.1); Sodium 136 mmol/L (135-145); Total Protein 6.9 g/dL (6.5-8.0)
[2023-01-21 14:39] LABS: Influenza A PCR NEGATIVE (Negative); Influenza B PCR NEGATIVE (Negative); Resp Syncy Virus RNA Qual PCR NEGATIVE (Negative); SARS COV2 PCR INHOUSE NEGATIVE (Negative)
[2023-01-21 14:48] LABS: Erythrocyte Sedimentation Rate 16 MM/HR (0-15)
[2023-01-21] MEDS: iohexoL 350 MG/ML 100 ML INFUS..BTL IV (15:00)
[2023-01-21 15:49] VITALS: BP 139/83; PULSE 68; RESP 18; TEMP 36.1; O2SAT 100
== END 2023-01-21 16:37 | disposition home or self-care (01) ==
PROVIDERS: Physician Assistant Medical; Emergency Provider Emergency Medicine; PCP Internal Medicine
DX: L03.211 Cellulitis of face (principal); R22.0 Localized swelling, mass and lump, head; Z86.718 Personal history of other venous thrombosis and embolism; Z79.01 Long term (current) use of anticoagulants; Z20.822 Contact with and (suspected) exposure to COVID-19; Z20.828 Contact with and (suspected) exposure to other viral communicable diseases
CPT/HCPCS: 0241U; 70491; 80053; 83605; 83735; 85025; 85652; 86140; 87040; 99283; 99284; Q9967

== ENCOUNTER 2023-12-19 08:45 | Outpatient (AMB) | payer OTHER, SELFPAY ==
--- NOTE | 2023-12-19 08:50 | AM.OFFWIN_ITS ---
Intake Vital Signs 12/19/23 08:51 Height 6 ft Weight 185 lb BMI 25.1 BP 170/90 H Blood Pressure Location Rt brachial Position Sitting Pulse 85 Pulse Source Pulse Oximeter Pulse Oximetry (%) 98 Oxygen Delivery Method Room Air Intake Visit Reasons: EP-dizziness, coughing Intake Note: Patient here for dizziness that has been present for a couple weeks, mentioned he some times has to hold on to something because he feels like he was going to fall. Pt would also like to have his cough addressed that has been present for a while now and has been taking a OTC medication for it and one of the side affects is severe dizziness. Patient Tobacco Use Status: Former Tobacco user Allergies ciprofloxacin [CIPROFLOXACIN] Allergy (Unknown, Verified 12/19/23 08:53) HIVES Cipro Allergy (Unknown, Uncoded 12/19/23 08:53) hives Do you need a note to return to daycare/school/sports/work: No HPI HPI Comments History of Present Illness Details Patient is a 63-year-old male complaining of severe dizziness for 2 weeks with nausea and vomiting. He tells me the dizziness feels like room spinning and like he is off balance. He states it comes and goes he tells me nothing seems to make it better but changing positions might seem to make it worse. He states he usually does not do anything but sit there and try to let it pass and it usually resolves on its own. He did have an episode where [place] and he suddenly felt the dizziness and had to hold onto the machine so he did not fall over. He tells me he managed to get himself to the restroom where he promptly vomited. He tells me after he was brought to the exam room, he did feel an episode of dizziness with nausea but has not vomited. He denies any headaches or changes in his vision. He denies a history of hypertension and states he does not take any antihypertensive medications. Tells me he has also had a cough for awhile and he was taking Primatene mist and he looked up the side effects and 1 of the side effects was extreme dizziness but he stopped taking the medication 4 days ago. He also found an old albuterol inhaler and used that this morning and he is wondering if that is contributing to his elevated blood pressure. [facility] Medical History Nicotine dependence, cigarettes, uncomplicated Dysfunction of left rotator cuff Tobacco use disorder Hypercholesterolemia Varicose veins of bilateral lower extremities with pain Surgical History History of umbilical hernia repair History of colon resection (~10/2011) History of reversal of ileostomy (~12/2011) History of right inguinal hernia repair History of colonoscopy History of vein stripping History of nasal polypectomy Family History Father Lymphoma Mother Dementia Social History Household Members: None Housing: House Alcohol intake: current Alcohol intake frequency: a few times a month Patient Tobacco Use Status: Former Tobacco user Tobacco use type: Cigarette e-Cigarette/Vaping Use: Currently Using Second Hand Smoke Exposure: No service: Yes ([employer]) Current occupational status: unemployed Current occupation: [employer] - Right Handed Cognitive needs: No Hearing needs: No Vision needs: Yes (glasses) Review of Systems Const All systems reviewed & are unremarkable except as noted in HPI and below Neuro Denies Abnormal speech present Physical Exam Vital Signs: Last Vital Signs Pulse 85 12/19/23 08:51 BP 170/90 H 12/19/23 08:51 Pulse Ox 98 12/19/23 08:51 Oxygen Delivery Method Room Air 12/19/23 08:51 BMI result Body Mass Index 25.1 Const General: cooperative, healthy appearing, comfortable, no acute distress and well developed Orientation/consciousness: patient oriented x3 Limitations: no limitations HEENT Head: Yes normal to inspection Ears: hearing grossly normal bilaterally General nose exam: Normal external nose present Face and sinus: Yes normal facial exam Eyes General: appearance normal, both eyes and all related structures Pupils: Equal, round and reactive pupils present Neck Neck: Yes normal visual inspection and Yes full ROM Resp Effort & Inspection: normal respiratory effort and able to speak in complete sentences Skin General skin exam: no rashes or lesions noted Neuro General: patient oriented x3 and gait normal Cranial nerves: Yes Equal, round and reactive pupils present, Yes Bilaterally intact EOM present, Yes Normal facial strength present, Yes Midline tongue present, Yes Ability to bilaterally rotate head present and Yes Ability to bilaterally elevate shoulders present Cognition (Neuro): normal cognition Speech: No Abnormal speech present Gait exam (Neuro): Normal gait present Extrem General: Yes normal to inspection Assessment & Plan Assessment & Plan (1) Elevated blood pressure reading without diagnosis of hypertension: Code(s): R03.0 - Elevated blood-pressure reading, without diagnosis of hypertension Plan: Half-life for Primatene mist (epinephrine) is 1 hour and the patient has not used it in 4 days so this is likely not contributing to his elevated blood pressure or his dizziness. Recommended patient go to the emergency department for further workup and treatment of the blood pressure. Recommended he go by ambulance however he declined as he states he is feeling well enough to drive himself. He will go to [facility]. Called ahead to [facility] ED with expect (2) Nausea and vomiting: Code(s): R11.2 - Nausea with vomiting, unspecified Qualifiers: Vomiting type: unspecified Qualified Code(s): R11.2 - Nausea with vomiting, unspecified Plan: See above Plan See above Coding Level of Care Code Est Pt Level 5 (19681) Diagnoses Elevated blood pressure reading without diagnosis of hypertension R03.0 Nausea and vomiting, unspecified vomiting type R11.2 Vomiting type: unspecified
[2023-12-19 08:51] VITALS: BP 170/90; PULSE 85; O2SAT 98; BMI 25.1
== END 2023-12-19 09:12 | disposition home or self-care (01) ==
PROVIDERS: PCP Internal Medicine; Visit Provider Physician Assistant
DX: R03.0 Elevated blood-pressure reading, without diagnosis of hypertension (principal); R11.2 Nausea with vomiting, unspecified

== ENCOUNTER → 2023-12-19 08:45 | Outpatient (BNVA) | payer OTHER, SELFPAY | PROVIDERS: PCP Internal Medicine; Visit Provider Physician Assistant | DX: R03.0 Elevated blood-pressure reading, without diagnosis of hypertension (principal); R11.2 Nausea with vomiting, unspecified | CPT/HCPCS: 99212 ==

== ENCOUNTER 2023-12-19 09:35 | Emergency (ER) | payer OTHER, SELFPAY ==
[2023-12-19] VITALS (7 sets, daily range): BP systolic 147–172; BP diastolic 81–90; PULSE 63–74; RESP 18–22; TEMP 36.9; O2SAT 94–97; BMI 25.8
--- NOTE | ~2023-12-19 | CT_ITS ---
EXAMINATION: CT HEAD WITHOUT CONTRAST CLINICAL INFORMATION: Dizziness. COMPARISON: MR brain dated 08/09/2021. TECHNIQUE: Contiguous axial imaging was performed from the skull base to vertex without intravenous administration of contrast. This CT examination was performed using dose optimization techniques as appropriate, variously including the following: *Automated exposure control *Adjustment of mA and/or kV according to patient size (this includes techniques or standardized protocols for targeted exams where dose is matched to indication/reason for exam; i.e. extremities or head) *Use of iterative reconstruction technique DLP: 654 mGy-cm FINDINGS: No acute intracranial hemorrhage. No mass effect or midline shift. No parenchymal lesion. The dooley-white differentiation is maintained. No extra-axial fluid collection. The ventricles and sulci are unremarkable. The basal cisterns are patent. The calvarium is intact. Defects within the medial ibarra of the maxillary sinuses, consistent with prior surgery. Diffuse paranasal sinus mucoperiosteal thickening and partial opacification, consistent with chronic sinusitis. CT/CT head/brain wo IV con IMPRESSION: 1. No acute intracranial hemorrhage or mass effect. 2. Findings consistent with chronic sinusitis. Electronically signed by: Brian Gautam MD 12/19/2023 11:43 AM EDT
--- NOTE | ~2023-12-19 | XR_ITS ---
EXAMINATION: XR CHEST CLINICAL INFORMATION: Cough. COMPARISON: Chest and rib radiographs dated 02/13/2015. TECHNIQUE: 2 views of the chest were obtained. FINDINGS: The lungs are clear. The cardiomediastinal silhouette is normal in size. There is no pleural effusion or pneumothorax. No acute osseous abnormality. XR/XR chest 2V IMPRESSION: No acute cardiopulmonary findings. Electronically signed by: Brian Gautam MD 12/19/2023 11:25 AM EDT
--- NOTE | ~2023-12-19 | CT_ITS ---
EXAMINATION: CT ANGIOGRAM CHEST CLINICAL INFORMATION: Shortness of breath. Dizziness. Positive d-dimer. COMPARISON: Chest radiograph dated December 19, 2023. TECHNIQUE: Multiple axial images were obtained through the chest after the administration of 65 mL of Omnipaque 350 intravenous contrast. Extensive vascular post-processing including two-dimensional and three-dimensional reformatted images were created and reviewed on an independent workstation. This CT examination was performed using dose optimization techniques as appropriate, variously including the following: *Automated exposure control *Adjustment of mA and/or kV according to patient size (this includes techniques or standardized protocols for targeted exams where dose is matched to indication/reason for exam; i.e. extremities or head) *Use of iterative reconstruction technique DLP: 334 mGy-cm FINDINGS: No central or lobar pulmonary artery. Evaluation of the segmental and subsegmental pulmonary arteries is somewhat limited secondary to mixing artifact. The trachea and central airways are widely patent. The lungs are clear. There is no consolidation within either lung. No pulmonary mass. The visualized aorta is normal in caliber. The heart is normal in size. There is no pericardial effusion. There is coronary artery calcification. There is no hilar or mediastinal adenopathy. There is no pleural effusion or pneumothorax. No axillary lymphadenopathy. The visualized abdominal structures are normal in appearance. No acute osseous abnormality. CT/CT angio chest PE protocol IMPRESSION: No central or lobar pulmonary artery. Evaluation of the segmental and subsegmental pulmonary arteries is somewhat limited secondary to mixing artifact. The lungs are clear. Pleural spaces are clear. Fleischner guidelines were followed. Electronically signed by: Abel Caro DO 12/19/2023 04:40 PM EDT
--- NOTE | 2023-12-19 09:46 | ECG_ITS ---
Test Reason : dizzy Blood Pressure : / mmHG Vent. Rate : 070 BPM Atrial Rate : 070 BPM P-R Int : 164 ms QRS Dur : 094 ms QT Int : 394 ms P-R-T Axes : 067 067 060 degrees QTc Int : 425 ms Normal sinus rhythm Normal ECG When compared with ECG of 19-OCT-2011 11:26, No significant change was found Referred By: Generic ED Physician Electronically Signed By:SORAIDA WHITE MD
[2023-12-19 10:10] LABS: MANUAL DIFF FLAG NO
[2023-12-19 10:14] LABS: Basophils Absolute Auto 0.1 X10*3/uL (0.0-0.2); Basophils Percent Auto 0.9 % (0-2); Eosinophils Absolute Auto 0.8 X10*3/uL (0.0-0.4); Eosinophils Percent Auto 11.7 % (0-4); Hematocrit 44.5 % (42.0-52.0); Hemoglobin 15.5 g/dl (14.0-18.0); Imm Gran Abs Auto 0.02 X10*3/uL (0.00-0.03); Imm Gran Pct Auto 0.3 % (0.0-0.4); Lymphocytes Absolute Auto 1.5 X10*3/uL (1.2-4.9); Lymphocytes Percent Auto 22.2 % (20-40); Mean Corpuscular HGB Conc 34.8 g/dl (31.0-36.0); Mean Corpuscular Hemoglobin 30.9 pg (27.0-33.0); Mean Corpuscular Volume 88.6 fL (80.0-98.0); Mean Platelet Volume 9.4 fL (9.4-12.4); Monocytes Absolute Auto 0.9 X10*3/uL (0.1-1.2); Monocytes Percent Auto 13.4 % (2-11); Neutrophils Absolute Auto 3.4 x10*3/uL (2.0-8.3); Neutrophils Percent Auto 51.5 % (45-73); Platelet Count 210 X10*3/uL (160-400); Red Blood Count 5.02 X10*6/uL (4.60-5.80); Red Cell Distribution Width 14.7 % (11.0-16.0); White Blood Count 6.7 X10*3/uL (4.8-10.8)
--- NOTE | 2023-12-19 10:15 | ED_ITS ---
HPI - General Adult General Chief complaint: General Medical Stated complaint: High BP, dizziness Time Seen by Provider: 12/19/23 10:06 Source: patient and RN notes reviewed Mode of arrival: ambulatory Limitations: no limitations History of Present Illness ED Provider: Nel Finch PA-C HPI narrative: This is a 63-year-old male, with a history of prior DVT secondary to knee surgery, was on anticoagulation however had to discontinue 3 months ago secondary to cost, chronic sinusitis, hyperlipidemia previously on a statin however discontinued who presents emergency department with complaints of ongoing dizziness for the last 2 weeks. Patient states that he has felt as though he has become more short of breath, and has been utilizing cxkj-nnt-lsyklua products to help with the shortness for breath as he has been without his albuterol inhaler. He states that he has been using Primatene mist inhaler very frequently. He is a former smoker, smokes approximately 1ppd, reporting that he quit approximately 3 months ago. Patient reports that the dizziness is intermittent, states that prior to his arrival in the emergency room he was seen at an urgent care and was told to come to the emergency room due to his symptoms. Describes the sensation as a spinning like sensation. Upon his arrival in the parking lot he felt extremely dizzy, and felt like he had to grab onto the wall. He states that since this episode he has not had any episodes of dizziness. Denies any blurred vision, headache, chest pain. He does report shortness of breath. He denies any calf pain. No other complaints or concerns at this time. MD complaint: Dizziness, shortness of breath Onset (ago): week(s) Radiation: non-radiation Quality: aching Pain Consistency: constant Relieving factors: none Exacerbating factors: none Associated symptoms: shortness of breath Related Data Home Medications ?Medication ?Instructions ?Recorded ?Confirmed budesonide 0.5 mg/2 mL suspension 0.75 mg inhalation BID 05/10/21 07/04/22 for nebulization fluticasone 250 mcg-salmeterol 50 1 ea inhalation BID 08/15/21 07/04/22 mcg/dose blistr powdr for inhalation (Advair Diskus) montelukast 10 mg tablet 10 mg PO QPM 08/15/21 07/04/22 acetaminophen 325 mg capsule 650 mg PO Q6H PRN Pain, Moderate 03/08/22 07/04/22 (Tylenol) Previous Rx's ?Medication ?Instructions ?Recorded atorvastatin 20 mg tablet 20 mg PO BEDTIME #90 tabs 03/07/22 albuterol sulfate 90 mcg/actuation 1 inh inhalation QID 30 days #8.5 12/04/22 aerosol inhaler (ProAir HFA) grams apixaban 5 mg tablet (Eliquis) 5 mg PO BID #180 tabs 12/06/22 albuterol sulfate 90 mcg/actuation 2 puff inhalation 6XD PRN 12/19/23 aerosol inhaler (Ventolin HFA) shortness of breath #6.7 grams amlodipine 5 mg tablet 5 mg PO DAILY #30 tabs 12/19/23 meclizine 25 mg tablet 25 mg PO QID PRN dizziness #15 tabs 12/19/23 prednisone 20 mg tablet 40 mg (2 x 20 mg) PO DAILY #8 tabs 12/19/23 Allergies Allergy/AdvReac Type Severity Reaction Status Date / Time ciprofloxacin [CIPROFLOXACIN] Allergy Unknown HIVES Verified 12/19/23 09:40 Cipro Allergy Unknown hives Uncoded 12/19/23 09:40 Review of Systems 2 Review of Systems: Yes all other systems are reviewed and are negative Constitutional: Constitutional: Reports as per [facility] Past Medical History Medical History Nicotine dependence, cigarettes, uncomplicated Dysfunction of left rotator cuff Tobacco use disorder Hypercholesterolemia Varicose veins of bilateral lower extremities with pain Surgical History History of umbilical hernia repair History of colon resection (~10/2011) History of reversal of ileostomy (~12/2011) History of right inguinal hernia repair History of colonoscopy History of vein stripping History of nasal polypectomy Family History Family History Father Lymphoma Mother Dementia Social History Social History Household Members: None Housing: House Alcohol intake: current Alcohol intake frequency: a few times a month Patient Tobacco Use Status: Former Tobacco user Tobacco use type: Cigarette e-Cigarette/Vaping Use: Currently Using Second Hand Smoke Exposure: No Advance Directives: No Advance Directives Information Provided: Yes service: Yes (army) Current occupational status: unemployed Current occupation: Dry wall finishing - Right Handed Cognitive needs: No Hearing needs: No Vision needs: Yes (glasses) Physical Exam ED Vital Signs: Vital Signs - 24 hr 12/19/23 09:38 12/19/23 13:51 12/19/23 13:52 Temperature 98.5 F Pulse Rate 74 63 67 Respiratory Rate 20 Blood Pressure 172/89 H 158/85 H 163/90 H Pulse Oximetry 96 Oxygen Delivery Method Room Air 12/19/23 13:52 12/19/23 14:42 Temperature Pulse Rate 66 70 Respiratory Rate 22 H Blood Pressure 159/86 H Pulse Oximetry Oxygen Delivery Method BMI result Body Mass Index 25.8 Const General: cooperative, comfortable and no acute distress Orientation/consciousness: patient oriented x3 Limitations: no limitations HENMT Head: Yes normal to inspection, Yes normocephalic and Yes atraumatic Ears: hearing grossly normal bilaterally General nose exam: Normal external nose present Face and sinus: Yes normal facial exam Mouth: Normal oral and palatal mucosa present, oropharynx normal and moist mucous membranes Throat: Yes posterior oropharynx normal Eyes General: appearance normal, both eyes and all related structures Eyelids: Yes eyelids normal Conjunctivae: conjunctivae normal Sclerae: sclerae normal Pupils: Equal, round and reactive pupils present EOM: EOMs intact bilaterally Neck Neck: Yes normal visual inspection, Yes full ROM and Yes no lymphadenopathy Lymphatic: no lymphadenopathy noted Chest Chest palpation & inspection: normal inspection of the chest Resp Other: Inspiratory and expiratory wheezes noted. Effort & Inspection: normal respiratory effort and able to speak in complete sentences Cardio Rate: regular rate Rhythm: regular rhythm Heart sounds: S1 normal heart sound present and S2 normal heart sound present GI Inspection: Yes normal to inspection Skin General skin exam: no rashes or lesions noted Trauma: no lacerations or abrasions Wounds: no wounds Neuro General: patient oriented x3 and moves all extremities Cranial nerves: Yes Equal, round and reactive pupils present Cognition (Neuro): normal cognition Gait exam (Neuro): Normal gait present Motor exam (neuro): 5/5 motor strength present throughout and Pronator motor function not present Coordination: zciecb-gq-twfr test normal, pykw-id-gjpw test normal and tandem gait normal Romberg Test: Negative Extrem General: Yes normal to inspection Right upper extremity: normal to inspection Left upper extremity: normal to inspection Right lower extremity: normal to inspection Left lower extremity: normal to inspection NIH Stroke Scale Internal: Initial- Upon Arrival Level of Consciousness: Alert Level of Consciousness Questions: Answers both questions correctly Level of Consciousness Commands: Performs both tasks correctly Best Gaze: Normal Visual: No visual loss Facial Palsy: Normal Motor Arm (Right): No drift Motor Arm (Left): No drift Motor Leg (Right): No drift Motor Leg (Left): No drift Limb Ataxia: Absent Sensory: Normal Best Language: No aphasia Dysarthia: Normal Extinction and Inattention: No abnormality Score: 0 Course Reevaluation(s) Reevaluation #1: CT scan head revealing consistent with chronic sinusitis, no hemorrhage or mass effect. He is not orthostatic. Chest X-ray revealing no acute cardiopulmonary findings. D-dimer above upper limit, will obtain a CTA given history of blood clots and concern for shortness for breath. Patient remained stable. He has not had any episodes of dizziness since prior to his arrival in the emergency department. Time: 14:13 Reevaluation #2: Blood pressure still remains to be slightly elevated however patient asymptomatic. Has not had any episodes of dizziness since his arrival in the emergency department. We will continue to closely monitor 2nd troponin negative. Pending CTA of the chest. Sign-out given to my colleague, Leonardo Nelson PA-C pending CTA chest and re-eval. Time: 16:22 Reevaluation #3: I LEONARDO NELSON PA-C HAVE ACCEPTED CARE OF THE PATIENT AND SIGNED OUT PENDING ANGIOGRAM AND FINAL DISPOSITION I HAVE INDEPENDENTLY REVIEWED THE FOLLOWING TESTS: CT ANGIO CHEST:/CT ANGIOGRAM CHEST CLINICAL INFORMATION: Shortness of breath. Dizziness. Positive d-dimer. COMPARISON: Chest radiograph dated December 19, 2023. TECHNIQUE: Multiple axial images were obtained through the chest after the administration of 65 mL of Omnipaque 350 intravenous contrast. Extensive vascular post-processing including two-dimensional and three-dimensional reformatted images were created and reviewed on an independent workstation. This CT examination was performed using dose optimization techniques as appropriate, variously including the following: *Automated exposure control *Adjustment of mA and/or kV according to patient size (this includes techniques or standardized protocols for targeted exams where dose is matched to indication/reason for exam; i.e. extremities or head) *Use of iterative reconstruction technique DLP: 334 mGy-cm FINDINGS: No central or lobar pulmonary artery. Evaluation of the segmental and subsegmental pulmonary arteries is somewhat limited secondary to mixing artifact. The trachea and central airways are widely patent. The lungs are clear. There is no consolidation within either lung. No pulmonary mass. The visualized aorta is normal in caliber. The heart is normal in size. There is no pericardial effusion. There is coronary artery calcification. There is no hilar or mediastinal adenopathy. There is no pleural effusion or pneumothorax. No axillary lymphadenopathy. The visualized abdominal structures are normal in appearance. No acute osseous abnormality. CT/CT angio chest PE protocol IMPRESSION: No central or lobar pulmonary artery. Evaluation of the segmental and subsegmental pulmonary arteries is somewhat limited secondary to mixing artifact. The lungs are clear. Pleural spaces are clear. Fleischner guidelines were followed. Electronically signed by: Abel Caro DO 12/19/2023 04:40 PM EDT Upon reassessment of the patient, he states he has been a long-term smoker, he was treated for wheezing here today. He still has some expiratory wheezing, he likely has a diagnosis of COPD that is yet to be determined. In regard to his blood pressure, it is not treated, I am going to start him on amlodipine. Then lastly, in regard to the dizziness, the patient is congested, he has serous otitis, he was told he was sinusitis he had a recent CT of the head, he is congested hence the reasoning for his dizziness. I am treating for COPD exacerbation, starting meds for blood pressure, and advising that he take either Claritin or Zyrtec for a month to alleviate the congestion. I am also encouraging him to call his primary care provider back, he needs further assessment in the way of blood pressure control, pulmonary function testing etc. Time: 17:06 Medications Administered Discontinued Medications Generic Name Dose Route Start Last Admin Trade Name Freq PRN Reason Stop Dose Admin Albuterol Sulfate 5 mg/ 0 mg 12/19/23 14:22 12/19/23 14:39 Albuterol/Ipratropium 3 ml INHALE 12/19/23 14:23 1 each ONCE ONE Administration Iohexol 100 ml 12/19/23 14:24 12/19/23 14:25 Iohexol 350 Mg/Ml 100 Ml Infus..Btl IV 12/19/23 14:25 65 ml ONCE ONE Administration Medical Decision Making Medical Decision Making [facility] Narrative: This is a 63-year-old male who presents emergency department with complaints of ongoing dizziness for the last 2 weeks. Patient states that the dizziness has been intermittent for the last several weeks, worsening over the last several days. He states that he went to an urgent care was told to the come to the emergency room for further evaluation. On arrival, blood pressure elevated 172/89, all other vital signs within normal limits. He reports that he has been utilizing disf-bvs-paapind inhalers. He is speaking full sentences under no acute distress. He is ambulatory with steady gait. He is ambulatory in the department without symptoms. He has been utilizing rsrd-qje-zlagiam cold and cough medication to help with congestion as well as shortness of breath. He has a history of asthma, recently quit smoking cigarettes, concern for COPD. NIH score of 0. Given history of DVT not compliant with anticoagulation as well as hyperlipidemia, concern for clot is there. He is not hypoxic, will obtain D- dimer due to shortness of breath and not on current anticoagulation. Plan: Labs, EKG, chest x-ray, head CT Differential Diagnosis Differential Diagnoses: The differential diagnosis associated with the presentation includes PE, orthostatic hypotension, electrolyte derangement, BPPV, vertigo Lab Data [facility] Lab Attestation statement: I reviewed the patient's lab results. No leukocytosis, stable H&H, chemistry within normal limits, D-dimer 271 just above the upper limit 12/19/23 10:01 12/19/23 10:01 Labs: Lab Results 12/19/23 12/19/23 12/19/23 Range/Units 10: 11:10 14:39 WBC 6.7 (4.8-10.8) X10*3/uL RBC 5.02 (4.60-5.80) X10*6/uL Hgb 15.5 (14.0-18.0) g/dl Hct 44.5 (42.0-52.0) % MCV 88.6 (80.0-98.0) fL MCH 30.9 (27.0-33.0) pg MCHC 34.8 (31.0-36.0) g/dl RDW 14.7 (11.0-16.0) % Plt Count 210 (160-400) X10*3/uL MPV 9.4 (9.4-12.4) fL Immature Gran % (Auto) 0.3 (0.0-0.4) % Neut % (Auto) 51.5 (45-73) % Lymph % (Auto) 22.2 (20-40) % [place] % (Auto) 13.4 H (2-11) % Eos % (Auto) 11.7 H (0-4) % Baso % (Auto) 0.9 (0-2) % Lymph # (Auto) 1.5 (1.2-4.9) X10*3/uL [place] # (Auto) 0.9 (0.1-1.2) X10*3/uL Eos # (Auto) 0.8 H (0.0-0.4) X10*3/uL Baso # (Auto) 0.1 (0.0-0.2) X10*3/uL Abs Immat Gran (auto) 0.02 (0.00-0.03) X10*3/uL Absolute Neuts (auto) 3.4 (2.0-8.3) x10*3/uL Absolute Nucleated RBC 0.000 (0.0-0.012) X10*3/uL Nucleated RBC % (auto) 0.0 (0.0-0.2) /100WBC PT 10.2 L (10.9-12.4) SEC INR 0.9 (0.9-1.1) APTT 44.6 H (26.0-36.8) SEC D-Dimer High Sensitivty 271 NG/ML Sodium 139 (135-145) mmol/L Potassium 3.7 (3.3-5.1) mmol/L Chloride 106 (96-108) mmol/L Carbon Dioxide 24 (22-29) mmol/L Anion Gap 13 (12-20) BUN 13 (9-16) mg/dL Creatinine 0.76 (0.5-1.4) mg/dL Estim Creat Clear Calc 107.3 Estimated GFR > 60 Fasting Glucose 101 H (60-99) mg/dL Calcium 8.8 (8.4-10.2) mg/dL Troponin I High Sens 3.9 5.1 (<3.5-35.0) ng/L B-Natriuretic Peptide 14 (<100) pg/mL Influenza Type A (PCR) NEGATIVE (Negative) Influenza Type B (PCR) NEGATIVE (Negative) RSV RNA Qual (PCR) NEGATIVE (Negative) SARS-CoV-2 RNA (RT-PCR) NEGATIVE (Negative) Independent Interpretation I performed an independent interpretation of an: EKG Interpretation: EKG normal sinus rhythm at a ventricular rate of 70 beats per minute, LA interval 164, QT QTC 394/425, no ST elevation or depression. Radiology Impression Discussion of test interpretation with radiology: I have reviewed the radiologist's reading. Radiologist Impression: CT/CT head/brain wo IV con IMPRESSION: 1. No acute intracranial hemorrhage or mass effect. 2. Findings consistent with chronic sinusitis. Electronically signed by: Brian Gautam MD 12/19/2023 11:43 AM EDT [employer] Workstation: [id number] Dictated By: Brian Gautam MD XR/XR chest 2V IMPRESSION: No acute cardiopulmonary findings. Electronically signed by: Brian Gautam MD 12/19/2023 11:25 AM EDT RP Workstation: [id number] Dictated By: Brian Gautam MD External Record Review External record reviewed: Inpatient record, Office record, Outpatient record, Prior outpatient labs, Prior outpatient radiology, Primary care record and Outside ED record Critical Care Time Critical Care Time Critical Care Time: Yes Total Critical Care Time: 35 Attestation: I have personally provided critical care time exclusive of time spent on separately billable procedures. Time includes review of lab data, radiology results, discussion with consultants, and monitoring for potential decompensation. Intervention performed as documented. Discharge Plan Discharge Clinical Impression: Dizziness, SOB (shortness of breath), Elevated blood pressure reading without diagnosis of hypertension, Serous otitis media, Bronchitis Patient Disposition: Home, Self-Care Instructions: How to Use a Metered-Dose Inhaler (ED), Acute Bronchitis (ED), Hypertension (ED), Dizziness (ED) Additional Instructions: You were seen in the emergency department due to ongoing dizziness. Given you have fluid within the inner ear, with a diagnosis of sinusitis, this is congestion, this certainly can be causing your dizziness. You need to take either etme-xbd-nehzjjs Claritin or Zyrtec, daily for at least a month, this will alleviate the congestion and help your dizziness. In the meantime, I am sending you with a medication called meclizine, this will help with the dizziness as well. In regard to her blood pressure, we are starting you on a medication called amlodipine, you take it daily in the morning, your receiving her 1st dose today. You need to follow up with your primary care provider, you need full assessment to get on a anti hypertension medication regimen. You are also being treated for suspect COPD exacerbation. Given your long-term smoker, you likely have COPD, again, you need to follow up with primary care provider for pulmonary function testing to determine the nature of your reactive airway. In the meantime, use the prescribed albuterol as needed for wheezing and bronchospasm cough, take the steroid taper as directed. Started in the morning. Your workup today was reassuring. Please avoid using xpnr-tug-wetogda inhalers as this can cause you to have the symptoms. Please monitor your blood pressure, call your primary physician tomorrow to make an appointment. Please also follow-up in regards to your statin medication you were previously prescribed. You may need to have your cholesterol. I am also referring you to follow-up with your sewer as you have not been taking your blood thing in medication. If any new or worsening symptoms occur including but not limited to chest pain, shortness of breath, worsening dizziness, please return to be re-evaluated. Prescriptions: New albuterol sulfate [Ventolin HFA] 90 mcg/actuation HFA aerosol inhaler 2 puff inhalation 6XD PRN (Reason: shortness of breath) Qty: 6.7 0RF prednisone 20 mg tablet 40 mg PO DAILY Qty: 8 0RF meclizine 25 mg tablet 25 mg PO QID PRN (Reason: dizziness) Qty: 15 0RF amlodipine 5 mg tablet 5 mg PO DAILY Qty: 30 0RF No Action atorvastatin 20 mg tablet 20 mg PO BEDTIME Qty: 90 1RF albuterol sulfate [ProAir HFA] 90 mcg/actuation HFA aerosol inhaler 1 inh inhalation QID 30 Days Qty: 8.5 3RF Eliquis 5 mg tablet 5 mg PO BID Qty: 180 1RF acetaminophen [Tylenol] 325 mg Capsule 650 mg PO Q6H PRN (Reason: Pain, Moderate) budesonide 0.5 mg/2 mL suspension for nebulization 0.75 mg inhalation BID montelukast 10 mg tablet 10 mg PO QPM fluticasone propion-salmeterol [Advair Diskus] 250-50 mcg/dose blister with device 1 ea inhalation BID Print Language: Anguill[place]
[2023-12-19 10:32] LABS: Anion Gap 13 (12-20); Blood Urea Nitrogen 13 mg/dL (9-16); Calcium 8.8 mg/dL (8.4-10.2); Carbon Dioxide 24 mmol/L (22-29); Chloride 106 mmol/L (96-108); Creatinine Clr Calc Pharmacy 107.3; Estimated Glomerular Filt Rate > 60; Glucose Fasting 101 mg/dL (60-99); Potassium 3.7 mmol/L (3.3-5.1); Sodium 139 mmol/L (135-145)
[2023-12-19 10:48] LABS: Influenza A PCR NEGATIVE (Negative); Influenza B PCR NEGATIVE (Negative); Resp Syncy Virus RNA Qual PCR NEGATIVE (Negative); SARS COV2 PCR INHOUSE NEGATIVE (Negative)
[2023-12-19 11:49] LABS: INTERNATIONAL NORM RATIO 0.9 (0.9-1.1); Prothrombin Time 10.2 SEC (10.9-12.4)
[2023-12-19 11:51] LABS: D Dimer High Sensitivity 271 NG/ML; Partial Thromboplastin Time 44.6 SEC (26.0-36.8)
[2023-12-19 14:06] LABS: Troponin-I High Sensitivity 3.9 ng/L (<3.5-35.0)
--- NOTE | 2023-12-19 14:13 | PC.NURSE ---
20G inserted to pt.'s RAC. Good blood return. Tolerated well.
[2023-12-19] MEDS: iohexoL 350 MG/ML 100 ML INFUS..BTL IV (14:25)
[2023-12-19] MEDS: Albuterol Sulfate 5 MG, Albuterol/Iprat 2.5/0.5MG 3 ML 3 ML INHALE (14:39)
[2023-12-19 15:14] LABS: B Type Natriuretic Peptide 14 pg/mL (<100)
[2023-12-19 15:16] LABS: Troponin-I High Sensitivity 5.1 ng/L (<3.5-35.0)
[2023-12-19] MEDS: amLODIPine Besylate 5 MG TABLET PO (17:10)
== END 2023-12-19 17:43 | disposition home or self-care (01) ==
PROVIDERS: Physician Assistant Medical; Emergency Provider Emergency Medicine; PCP Internal Medicine
DX: R42 Dizziness and giddiness (principal); R06.02 Shortness of breath; H65.93 Unspecified nonsuppurative otitis media, bilateral; J40 Bronchitis, not specified as acute or chronic; Z03.818 Encounter for observation for suspected exposure to other biological agents ruled out; Z79.899 Other long term (current) drug therapy
CPT/HCPCS: 0241U; 36415; 70450; 71046; 71275; 80048; 83880; 84484; 85025; 85379; 85610; 85730; 93005; 94640; 99284; Q9967

== ENCOUNTER → 2023-12-19 09:46 | Outpatient (BNV) | payer OTHER, SELFPAY | PROVIDERS: Emergency Provider Emergency Medicine; PCP Internal Medicine; Visit Provider Internal Medicine Cardiovascular Disease | DX: R42 Dizziness and giddiness (principal) | CPT/HCPCS: 93010 ==

== ENCOUNTER 2024-01-13 08:01 | Outpatient (AMB) | payer OTHER, SELFPAY ==
--- NOTE | 2024-01-13 08:10 | A.OFFPC_ITS ---
Vital Signs 01/13/24 08:17 Height 5 ft 11 in Weight 185 lb 4 oz BMI 25.8 BP 138/78 Blood Pressure Location Lt brachial Position Sitting Pulse 90 Pulse Source Pulse Oximeter Pulse Oximetry (%) 95 Oxygen Delivery Method Room Air Intake Visit Reasons: breathing problems Intake Note: Patient is here to follow-up after a visit the emergency department at [facility] on 12/19/23. Possible undiagnosed HTN per Lauren PEARSON. Pt decline flu shot today. Document Clerk Required: No Outside Event Sales Specialist: Not Required per policy Accompanied by: Self / Same As Patient Allergies ciprofloxacin [CIPROFLOXACIN] Allergy (Unknown, Verified 01/13/24 09:12) HIVES Cipro Allergy (Unknown, Uncoded 01/13/24 09:12) hives Medication List - Last Reconciled 01/13/24 by Abner Marina MD acetaminophen (Tylenol) 650 mg PO Q6H PRN albuterol sulfate 90 mcg/actuation (Ventolin HFA) 2 puffs inhalation 6XD PRN amlodipine 5 mg PO DAILY apixaban (Eliquis) 5 mg PO BID atorvastatin 20 mg PO BEDTIME budesonide 0.75 mg (3 mL) inhalation BID fluticasone propion-salmeterol 250-50 mcg/dose (Advair Diskus) 1 ea inhalation BID meclizine 25 mg PO QID PRN montelukast 10 mg PO QPM Tobacco use date assessed: 01/13/24 Dental Screening Dental Screen Date: 01/13/24 Did you have a dental visit in the last 12 months?: Yes Did you have a dental problem in the last 6 months where you did not have access to dental care?: No Was dental information given to patient?: Patient has dentist HPI breathing problems HPI Details 63-year-old male presents to the office to discuss his chronic medical conditions. Patient quit smoking on September 14 of this year. For the past month he has been complaining of shortness of breath and nonproductive cough. He was initially seen at the walk-in clinic and found to have elevated blood pressure in addition to symptoms of wheezing. He was referred to the emergency room very was started on amlodipine. CTA ruled out pulmonary embolism. Patient was given albuterol and discharged home. Since last office visit patient stopped the apixaban on his own. He has insurance company was not covering the medication and he found it too expensive to pay for it. He also has history of nasal polyps and would like restart budesonide solution and Singulair. [facility] Medical History Essential hypertension Elevated blood pressure reading without diagnosis of hypertension History of dental abscess Nicotine dependence, cigarettes, uncomplicated Dysfunction of left rotator cuff Tobacco use disorder Hypercholesterolemia Varicose veins of bilateral lower extremities with pain Surgical History History of umbilical hernia repair History of colon resection (~10/2011) History of reversal of ileostomy (~12/2011) History of right inguinal hernia repair History of colonoscopy History of vein stripping History of nasal polypectomy Family History Father Lymphoma Mother Dementia Other Mental health disorder Social History Household Members: None Housing: House Alcohol intake: current Alcohol intake frequency: a few times a month Patient Tobacco Use Status: Former Tobacco user Tobacco use type: Cigarette e-Cigarette/Vaping Use: Former Use 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 1. Little interest or pleasure in doing things: not at all 2. Feeling down, depressed, or hopeless: not at all 3. Trouble falling or staying asleep, or sleeping too much: not at all 4. Feeling tired or having little energy: not at all 5. Poor appetite or overeating: not at all 6. Feeling bad about yourself - or that you are a failure or have let yourself or your family down: not at all 7. Trouble concentrating on things, such as reading the newspaper or watching television: not at all 8. Moving or speaking so slowly that other people could have noticed. Or the opposite - being so fidgety or restless that you have been moving around a lot more than usual: not at all 9. Thoughts that you would be better off or of hurting yourself in some way: not at all Total score: 0 Depression Screening Interpretation: Negative Depression Screening Done: Yes Source: Developed by Drs. Ramez Alan, Martha Barnhart, Nestor Arciniega and colleagues, with an educational brittney from [employer]. Thrive Questionnaire Date Thrive assessed: 01/13/24 I am a: Patient What is your living situation today?: I have a steady place to live Within the past 12 months, did the food you bought not last and you didn't have the money to get more?: Never true Within the past 12 months, did you worry whether your food would run out before you got money to buy more?: Never true Do you have trouble paying for medicines?: No Do you have trouble getting transportation to medical appointments?: No Do you have trouble paying your heating and electricity bill?: No Do you have trouble taking care of your child, family member or friend?: No Do you have trouble with day-to-day activities such as bathing, preparing meals, shopping, managing finances, etc.?: No Are you currently unemployed and looking for a job?: No Are you interested in more education?: No Currently or been in a relationship where the following occur: No concerns reported THRIVE Score: 0 AUDIT C Alcohol Use Questionnaire (AUDIT-C) 1. How often do you have a drink containing alcohol?: 2-4 times a month 2. How many drinks containing alcohol do you have on a typical day when you are drinking?: 1 or 2 3. How often do you have six or more drinks on one occasion?: Never Total Score: 2 RENNY-7 AMB Questionnaire RENNY-7 Date RENNY - 7 assessed: 01/13/24 Feeling nervous, anxious, or on edge: 0 = Not at all Not being able to stop or control worryin = Not at all Worrying too much about different things: 0 = Not at all Trouble relaxin = Not at all Being so restless that it is hard to sit still: 0 = Not at all Becoming easily annoyed or irritable: 0 = Not at all Feeling afraid as if something awful might happen: 0 = Not at all Total RENNY-7 score (0-4 normal; 5-9 mild; 10-14 moderate; 15-21 severe): 0 Source: Developed by Drs. Ramez Alan, Martha Barnhart, Nestor Arciniega and colleagues, with an educational brittney from [employer]. Physical exam (Primary Care) Vital Signs: Last Vital Signs Pulse 90 01/13/24 08:17 BP 138/78 01/13/24 08:17 Pulse Ox 95 01/13/24 08:17 Oxygen Delivery Method Room Air 01/13/24 08:17 BMI result Body Mass Index 25.8 Tobacco/Smoking Status: Tobacco use Status Tobacco use date assessed 01/13/24 01/13/24 08:29 Patient Tobacco Use Status Former Tobacco user 01/13/24 08:12 Tobacco use type Cigarette 01/13/24 08:12 e-Cigarette/Vaping Use Former Use 01/13/24 08:29 PHQ-9: PHQ-9 Score PHQ-9: Total score 0 01/13/24 08:33 Depression Screening Interpretation: Negative Thrive Assessment: Date of Thrive Assessment Date Thrive assessed 01/13/24 01/13/24 08:29 Currently or been in a relationship where the following occur: No concerns reported Const General: cooperative and healthy appearing Nutritional Appearance: well nourished Orientation/consciousness: patient oriented x3 Limitations: no limitations HENMT Head: Yes normal to inspection Eyes General: appearance normal, both eyes and all related structures Neck Neck: Yes normal visual inspection Chest Chest palpation & inspection: normal palpation of entire chest wall Resp Effort & Inspection: normal respiratory effort Neuro General: patient oriented x3 Results AMB Hemoglobin A1c AMB Hemoglobin A1c 5.8 % Last Edit by LAUREN Villegas on 01/13/24 08:33 Results Reviewed Results Reviewed: Laboratory Last Values Hgb A1c (Clinic) 5.8 % (4.0-6.0) 01/13/24 08:12 Coding Level of Care Code Est Pt Level 4 (17545) Complex EM visit Add On G2211 Diagnoses Right leg DVT I82.401 Nicotine dependence, cigarettes, uncomplicated F17.210 Essential hypertension I10 Mild intermittent extrinsic asthma without complication J45.20 Asthma severity: mild Asthma persistence: intermittent Asthma complication type: uncomplicated Assessment & Plan Assessment & Plan (1) Right leg DVT: Code(s): I82.401 - Acute embolism and thrombosis of unspecified deep veins of right lower extremity Category: Medical Plan: Since patient has stopped the apixaban more than 6 months ago, a hematology opinion will be requested to see if he should still be on the medication. (2) Nicotine dependence, cigarettes, uncomplicated: Comment: (current smoker) Code(s): F17.210 - Nicotine dependence, cigarettes, uncomplicated Category: Medical Plan: Congratulated the patient on quitting smoking. Encouraged him to not restart nicotine. (3) Essential hypertension: Code(s): I10 - Essential (primary) hypertension Category: Medical Plan: Blood pressure is well controlled with amlodipine. Blood work for cholesterol has been ordered. (4) Allergic asthma: Code(s): J45.909 - Unspecified asthma, uncomplicated Category: Medical Qualifiers: Asthma severity: mild Asthma persistence: intermittent Asthma complication type: uncomplicated Qualified Code(s): J45.20 - Mild intermittent asthma, uncomplicated Plan: Advair will be restarted. Albuterol to be used for breakthrough shortness of breath. Patient declines flu vaccination. Singulair and budesonide will help with asthma symptoms. Orders: Orders AMB Hemoglobin A1c Today Z13.9 - Encounter for screening, unspecified Erythrocyte Sedimentation Rate Today F17.210 - Nicotine dependence, cigarettes, uncomplicated, I10 - Essential (primary) hypertension, I82.401 - Acute embolism and thrombosis of unspecified deep veins of right lower extremity Basic Metabolic Panel Today F17.210 - Nicotine dependence, cigarettes, uncomplicated, I10 - Essential (primary) hypertension, I82.401 - Acute embolism and thrombosis of unspecified deep veins of right lower extremity Thyroid Stimulating Hormone Today F17.210 - Nicotine dependence, cigarettes, uncomplicated, I10 - Essential (primary) hypertension, I82.401 - Acute embolism and thrombosis of unspecified deep veins of right lower extremity Liver Panel Today F17.210 - Nicotine dependence, cigarettes, uncomplicated, I10 - Essential (primary) hypertension, I82.401 - Acute embolism and thrombosis of unspecified deep veins of right lower extremity Lipid Panel Today F17.210 - Nicotine dependence, cigarettes, uncomplicated, I10 - Essential (primary) hypertension, I82.401 - Acute embolism and thrombosis of unspecified deep veins of right lower extremity Complete Blood Count no Diff Today F17.210 - Nicotine dependence, cigarettes, uncomplicated, I10 - Essential (primary) hypertension, I82.401 - Acute embolism and thrombosis of unspecified deep veins of right lower extremity Medications: New montelukast 10 mg PO QPM 90 tabs 1RF fluticasone propion-salmeterol 250-50 mcg/dose (Advair Diskus) 1 ea inhalation BID 60 ea 1RF budesonide 0.75 mg (3 mL) inhalation BID 60 mL 1RF Refilled albuterol sulfate 90 mcg/actuation (Ventolin HFA) 2 puffs inhalation 6XD PRN 6.7 grams 0RF shortness of breath amlodipine 5 mg PO DAILY 90 tabs 1RF
[2024-01-13 08:17] VITALS: BP 138/78; PULSE 90; O2SAT 95; BMI 25.8
== END 2024-01-13 09:07 | disposition home or self-care (01) ==
LOC: HO.HMCH 08:01
PROVIDERS: PCP Internal Medicine; Visit Provider Internal Medicine
DX: I82.401 Acute embolism and thrombosis of unspecified deep veins of right lower extremity (principal); F17.210 Nicotine dependence, cigarettes, uncomplicated; I10 Essential (primary) hypertension; J45.20 Mild intermittent asthma, uncomplicated; Z13.9 Encounter for screening, unspecified

== ENCOUNTER → 2024-01-13 08:01 | Outpatient (BNVA) | payer OTHER, SELFPAY | PROVIDERS: PCP Internal Medicine; Visit Provider Internal Medicine | DX: I82.401 Acute embolism and thrombosis of unspecified deep veins of right lower extremity (principal); I10 Essential (primary) hypertension; J45.20 Mild intermittent asthma, uncomplicated; F17.210 Nicotine dependence, cigarettes, uncomplicated; Z71.6 Tobacco abuse counseling | CPT/HCPCS: 83036; 96127; 99212 ==

== ENCOUNTER 2024-02-12 15:37 | Outpatient (AMB) | payer OTHER, SELFPAY ==
[2024-02-12 15:40] VITALS: BP 122/84; PULSE 51; O2SAT 92; BMI 25.7
--- NOTE | 2024-02-12 15:40 | MHC.PC.OV ---
Vital Signs 02/12/24 15:40 Height 5 ft 11 in Weight 184 lb BMI 25.7 BP 122/84 Blood Pressure Location Lt brachial Position Sitting Pulse 51 Pulse Source Pulse Oximeter Pulse Oximetry (%) 92 Oxygen Delivery Method Room Air Intake Visit Reasons: 1 month f/u Educational Technician Required: No Accompanied by: Self / Same As Patient Allergies ciprofloxacin [CIPROFLOXACIN] Allergy (Unknown, Verified 02/12/24 15:40) HIVES Cipro Allergy (Unknown, Uncoded 02/12/24 15:40) hives Tobacco use date assessed: 02/12/24 Dental Screening Dental Screen Date: 02/12/24 Did you have a dental visit in the last 12 months?: No Did you have a dental problem in the last 6 months where you did not have access to dental care?: No Was dental information given to patient?: Patient has dentist [facility] Medical History Essential hypertension Elevated blood pressure reading without diagnosis of hypertension History of dental abscess Nicotine dependence, cigarettes, uncomplicated Dysfunction of left rotator cuff Tobacco use disorder Hypercholesterolemia Varicose veins of bilateral lower extremities with pain Surgical History History of umbilical hernia repair History of colon resection (~10/2011) History of reversal of ileostomy (~12/2011) History of right inguinal hernia repair History of colonoscopy History of vein stripping History of nasal polypectomy Family History Father Lymphoma Mother Dementia Other Mental health disorder Social History Household Members: None Housing: House Alcohol intake: current Alcohol intake frequency: a few times a month Patient Tobacco Use Status: Former Tobacco user Tobacco use type: Cigarette e-Cigarette/Vaping Use: Former Use 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 1. Little interest or pleasure in doing things: not at all 2. Feeling down, depressed, or hopeless: not at all 3. Trouble falling or staying asleep, or sleeping too much: not at all 4. Feeling tired or having little energy: not at all 5. Poor appetite or overeating: not at all 6. Feeling bad about yourself - or that you are a failure or have let yourself or your family down: not at all 7. Trouble concentrating on things, such as reading the newspaper or watching television: not at all 8. Moving or speaking so slowly that other people could have noticed. Or the opposite - being so fidgety or restless that you have been moving around a lot more than usual: not at all 9. Thoughts that you would be better off or of hurting yourself in some way: not at all Total score: 0 Depression Screening Interpretation: Negative Depression Screening Done: Yes Source: Developed by Drs. Ramez Alan, Martha Barnhart, Nestor Arciniega and colleagues, with an educational brittney from [employer]. Thrive Questionnaire Date Thrive assessed: 02/12/24 I am a: Patient What is your living situation today?: I have a steady place to live Within the past 12 months, did the food you bought not last and you didn't have the money to get more?: Never true Within the past 12 months, did you worry whether your food would run out before you got money to buy more?: Never true Do you have trouble paying for medicines?: No Do you have trouble getting transportation to medical appointments?: No Do you have trouble paying your heating and electricity bill?: No Do you have trouble taking care of your child, family member or friend?: No Do you have trouble with day-to-day activities such as bathing, preparing meals, shopping, managing finances, etc.?: No Are you currently unemployed and looking for a job?: No Are you interested in more education?: No Please select the resources that you would like help with: None Currently or been in a relationship where the following occur: No concerns reported THRIVE Score: 0 AUDIT C Alcohol Use Questionnaire (AUDIT-C) 1. How often do you have a drink containing alcohol?: 2-4 times a month 2. How many drinks containing alcohol do you have on a typical day when you are drinking?: 1 or 2 3. How often do you have six or more drinks on one occasion?: Never Total Score: 2 RENNY-7 AMB Questionnaire RENNY-7 Date RENNY - 7 assessed: 02/12/24 Feeling nervous, anxious, or on edge: 0 = Not at all Not being able to stop or control worryin = Not at all Worrying too much about different things: 0 = Not at all Trouble relaxin = Not at all Being so restless that it is hard to sit still: 0 = Not at all Becoming easily annoyed or irritable: 0 = Not at all Feeling afraid as if something awful might happen: 0 = Not at all Total RENNY-7 score (0-4 normal; 5-9 mild; 10-14 moderate; 15-21 severe): 0 Source: Developed by Drs. Ramez Alan, Martha Barnhart, Nestor Arciniega and colleagues, with an educational brittney from [employer]. Physical exam (Primary Care) Vital Signs: Last Vital Signs Pulse 51 02/12/24 15:40 BP 122/84 02/12/24 15:40 Pulse Ox 92 02/12/24 15:40 Oxygen Delivery Method Room Air 02/12/24 15:40 BMI result Body Mass Index 25.7 Tobacco/Smoking Status: Tobacco use Status Tobacco use date assessed 02/12/24 02/12/24 15:47 Patient Tobacco Use Status Former Tobacco user 02/12/24 15:47 Tobacco use type Cigarette 02/12/24 15:47 e-Cigarette/Vaping Use Former Use 02/12/24 15:47 PHQ-9: PHQ-9 Score PHQ-9: Total score 0 02/12/24 15:47 Depression Screening Interpretation: Negative Thrive Assessment: Date of Thrive Assessment Date Thrive assessed 02/12/24 02/12/24 15:47 Currently or been in a relationship where the following occur: No concerns reported Coding Level of Care Code Est Pt Level 4 (65751) Complex EM visit Add On G2211 Diagnoses Essential hypertension I10 Hypercholesterolemia E78.00 Assessment & Plan Assessment & Plan (1) Essential hypertension: Code(s): I10 - Essential (primary) hypertension Category: Medical (2) Hypercholesterolemia: Code(s): E78.00 - Pure hypercholesterolemia, unspecified Category: Medical Plan History of Present Illness The patient is a 63-year-old male presenting with medication management needs for his chronic conditions. He has been diagnosed with nasal polyps and was prescribed Budesonide by Dr. De Anda. The initial prescription was for one box, but the recommended dosage requires two boxes to administer twice a day. He reports improved breathing with Budesonide, with infrequent need for Albuterol as a rescue inhaler. The patient has been managing his asthma well and denies any recent exacerbation. Additionally, he was started on blood pressure medication and reports that his blood pressure readings are now within the normal range without any noticeable side effects. Previous lab work revealed an elevated C-reactive protein level, which requires a follow-up test. The patient also mentioned receiving a Cologuard test but was unable to access the results. His medical history includes diverticulitis that necessitated a colectomy, with no recent complications. 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 - Functional Status: Reports limitations due to a bruise on the ankle causing discomfort during long periods of walking. Review of Systems - Musculoskeletal: Reports discomfort and bruising on one ankle. - Integumentary: Denies current onychomycosis symptoms, specifically on the big toe. Physical Exam General: Appearance normal, both eyes and all related structures Nutritional Appearance: Well nourished Orientation/consciousness: Patient oriented x3 Limitations: No limitations Head: Normal to inspection Neck: Normal visual inspection Chest: Normal palpation of entire chest wall Respiratory: Normal respiratory effort, improved breathing with inhaler use Neurology: Patient oriented x3 Results - Labs: Previously elevated C-reactive protein level. Plan - Nasal Polyps: Increase Budesonide prescription to two boxes to accommodate twice daily dosage. - Controlled Asthma: Continue current inhaler regimen and carry rescue inhaler Albuterol) as needed. - Essential Hypertension: Continue current antihypertensive therapy, monitor for side effects, and maintain blood pressure within normal limits. - C-reactive Protein: Repeat CRP level to assess inflammatory status. - Cologuard: Await mailed results; follow-up pending receipt. - Varicose Veins: Monitor for symptoms; no anticoagulation therapy required. - Onychomycosis: No current treatment needed based on physical observation. Patient was informed and verbally consented to the use of an ambient scribe for clinic note documentation during this visit. Discussion Notes I discussed the medication adjustments required for the management of nasal polyps and clarified the appropriate use of Budesonide for the patient. The importance of continuing both the regular asthma inhaler regimen and rescue inhaler for acute symptoms was emphasized to maintain asthma control. We reviewed the need to monitor blood pressure regularly and to continue current antihypertensive medication, which seems effective and well-tolerated. I explained the rationale for repeating the CRP test as part of ongoing inflammatory monitoring. We addressed the patient's concern regarding the Cologuard test and confirmed that results should be anticipated via mail. I reassured the patient about the nature of his varicose veins and the non-necessity of restarting Eliquis, and we briefly reviewed his history of onychomycosis, deciding no treatment was necessary at this time. Patient Instructions
== END 2024-02-12 16:15 | disposition home or self-care (01) ==
PROVIDERS: PCP Internal Medicine; Visit Provider Internal Medicine
DX: I10 Essential (primary) hypertension (principal); E78.00 Pure hypercholesterolemia, unspecified

== ENCOUNTER → 2024-02-12 15:37 | Outpatient (BNVA) | payer OTHER, SELFPAY | PROVIDERS: PCP Internal Medicine; Visit Provider Internal Medicine | DX: I10 Essential (primary) hypertension (principal); E78.00 Pure hypercholesterolemia, unspecified | CPT/HCPCS: 96127; 99212 ==

== ENCOUNTER 2024-05-22 10:56 | Outpatient (REF) | payer OTHER, SELFPAY ==
[2024-05-22 15:37] LABS: Influenza A PCR NEGATIVE (Negative); Influenza B PCR NEGATIVE (Negative); Resp Syncy Virus RNA Qual PCR NEGATIVE (Negative); SARS COV2 PCR INHOUSE NEGATIVE (Negative)
== END 2024-05-22 10:57 | disposition home or self-care (01) ==
LOC: HO.LAB 10:56
PROVIDERS: Physician Assistant; PCP Internal Medicine
DX: J02.9 Acute pharyngitis, unspecified (principal); R09.89 Other specified symptoms and signs involving the circulatory and respiratory systems
CPT/HCPCS: 0241U; 87880; 99212

== ENCOUNTER 2024-05-22 10:56 | Outpatient (AMB) | payer OTHER, SELFPAY ==
[2024-05-22 11:14] VITALS: BP 120/70; PULSE 78; TEMP 36.9; O2SAT 94; BMI 25.7
--- NOTE | 2024-05-22 11:14 | MHC.OFFWIV ---
Intake Vital Signs 05/22/24 11:14 Height 5 ft 11 in Weight 184 lb BMI 25.7 BP 120/70 Blood Pressure Location Rt brachial Position Sitting Pulse 78 Pulse Source Pulse Oximeter Temp 98.5 F Temp Source Oral Pulse Oximetry (%) 94 Oxygen Delivery Method Room Air Intake Visit Reasons: EP Pain on lt side of neck/throat Intake Note: pt is here complaining of pain on left side on neck/throat. patient states when he pushes on the side of his throat it hurts, denies pain when swallowing. Patient Tobacco Use Status: Former Tobacco user Allergies ciprofloxacin [CIPROFLOXACIN] Allergy (Unknown, Verified 05/22/24 11:14) HIVES Cipro Allergy (Unknown, Uncoded 02/12/24 15:40) hives Do you need a note to return to daycare/school/sports/work: No HPI HPI Comments History of Present Illness Details History - The patient is a 64-year-old male presenting with sore throat x 2 days. - Symptoms have included a localized sore throat on the left side, which worsens when swallowing, with transient symptom relief from ibuprofen. - No significant ear pain, sinus pain, or fever reported. - Denies cough beyond baseline. - Recent smoking history includes resumption approximately one month ago after quitting for six months, correlating with phlegm-producing cough. - Consistently utilizes Wixela and an albuterol inhaler; historically used a budesonide nasal rinse for sinus irrigation. - Discontinued Eliquis without learning specialist consultation due to financial constraints, previously managed for DVT. Physical Exam General: Cooperative, healthy appearing, comfortable and no acute distress Orientation/consciousness: Patient oriented x3 Limitations: No limitations Head: Normal to inspection Ears: Hearing grossly normal bilaterally, external ears normal and TM's normal bilaterally Nose: Normal external nose present, Normal nares present and No nasal discharge present Face and sinus: Normal facial exam and Yes sinuses nontender Mouth: Normal oral and palatal mucosa present and moist mucous membranes Throat: Yes tonsils normal, Yes uvula midline. Posterior oropharynx erythema,no exudates noted Eyes: Appearance normal, both eyes and all related structures Neck: Normal visual inspection, no lymph node swelling felt Respiratory: Normal respiratory effort, able to speak in complete sentences, no respiratory distress, not tachypneic, no tripod positioning and no use of accessory muscles Skin: No rashes or lesions noted Neuro: Patient oriented x3 Extremities: Normal to inspection and Yes no clubbing, cyanosis or edema [facility] Medical History (Updated 05/22/24 @ 11:36 by Rivka Thomas PA-C) Encounter for colorectal cancer screening using Cologuard test (~02/03/24) Essential hypertension Elevated blood pressure reading without diagnosis of hypertension History of dental abscess Nicotine dependence, cigarettes, uncomplicated Dysfunction of left rotator cuff Tobacco use disorder Hypercholesterolemia Varicose veins of bilateral lower extremities with pain Surgical History History of umbilical hernia repair History of colon resection (~10/2011) History of reversal of ileostomy (~12/2011) History of right inguinal hernia repair History of colonoscopy History of vein stripping History of nasal polypectomy Family History Father Lymphoma Mother Dementia Other Mental health disorder Social History Household Members: None Housing: House Alcohol intake: current Alcohol intake frequency: a few times a month Patient Tobacco Use Status: Former Tobacco user Tobacco use type: Cigarette e-Cigarette/Vaping Use: Former Use 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 occupational status: unemployed 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 VSS, pt well appearing and PE remarkable for posterior oropharynx erythema. The working diagnosis of viral pharyngitis will be managed with symptomatic treatments including saline gargles and ibuprofen. Testing will be performed to exclude differential diagnoses such as influenza, COVID-19, and RSV. The patient?s history and symptoms also suggest the possibility of Chronic Obstructive Pulmonary Disease COPD; however, further evaluation will be deferred to the patient?s primary care provider for confirmation and management. A throat swab will be obtained to exclude strep throat. Lifestyle discussions highlighted the impact of smoking on current respiratory status, with advisement provided on smoking cessation. If no resolution in symptoms in 2 weeks, he should follow up with his PCP as he is a smoker. Patient was informed and verbally consented to the use of an ambient scribe for clinic note documentation during this visit Orders: Orders SARS-CoV2/FLU/RSV Today R09.89 - Other specified symptoms and signs involving the circulatory and respiratory systems Coding Level of Care Code Est Pt Level 3 (59812) Diagnoses Acute viral pharyngitis J02.9
== END 2024-05-22 12:17 | disposition home or self-care (01) ==
PROVIDERS: PCP Internal Medicine; Visit Provider Physician Assistant
DX: Z13.9 Encounter for screening, unspecified (principal); J02.9 Acute pharyngitis, unspecified

== ENCOUNTER 2024-06-22 08:03 | Outpatient (AMB) | payer OTHER, SELFPAY ==
--- NOTE | 2024-06-22 08:06 | AM.OFFWIN_ITS ---
Intake Vital Signs 06/22/24 08:08 Weight 177 lb BP 140/80 H Blood Pressure Location Lt brachial Position Sitting Pulse 78 Pulse Source Pulse Oximeter Pulse Oximetry (%) 96 Oxygen Delivery Method Room Air Intake Visit Reasons: EP Back pain (RT) Intake Note: Patient here for right mid back pain after a fall about 1 year ago and is wondering if he had a cracked rib when the initial fall happened. Patient Tobacco Use Status: Former Tobacco user Allergies ciprofloxacin [CIPROFLOXACIN] Allergy (Unknown, Verified 06/22/24 08:19) HIVES Cipro Allergy (Unknown, Uncoded 06/22/24 08:19) hives Do you need a note to return to daycare/school/sports/work: No HPI HPI Comments History of Present Illness Details 64 y/o Male patient who presents to the walk in clinic with c/o right Thoracic Back pain. Pt Had a Fall 1.5 years ago, and worries maybe he Cracked a Rib(s). 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 Patient has had Chest Xray and CTA done December and January 2024 with negative results. Denies SOB, Wheezing or chest tightness. [facility] Medical History (Updated 06/22/24 @ 09:10 by Viviane Curran NP) Thoracic back pain Encounter for colorectal cancer screening using Cologuard test (~02/03/24) Essential hypertension Elevated blood pressure reading without diagnosis of hypertension History of dental abscess Nicotine dependence, cigarettes, uncomplicated Dysfunction of left rotator cuff Tobacco use disorder Hypercholesterolemia Varicose veins of bilateral lower extremities with pain Surgical History History of umbilical hernia repair History of colon resection (~10/2011) History of reversal of ileostomy (~12/2011) History of right inguinal hernia repair History of colonoscopy History of vein stripping History of nasal polypectomy Family History Father Lymphoma Mother Dementia Other Mental health disorder Social History Household Members: None Housing: House Alcohol intake: current Alcohol intake frequency: a few times a month Patient Tobacco Use Status: Former Tobacco user Tobacco use type: Cigarette e-Cigarette/Vaping Use: Former Use 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 Cognitive needs: No Hearing needs: No Vision needs: Yes (glasses) Review of Systems Const All systems reviewed & are unremarkable except as noted in HPI and below Physical Exam Vital Signs: Last Vital Signs Pulse 78 06/22/24 08:08 BP 140/80 H 06/22/24 08:08 Pulse Ox 96 06/22/24 08:08 Oxygen Delivery Method Room Air 06/22/24 08:08 Const General: no acute distress Nutritional Appearance: thin Orientation/consciousness: patient oriented x3 Resp Effort & Inspection: normal respiratory effort Auscultation: clear to auscultation bilaterally Cardio Heart sounds: S1 normal heart sound present and S2 normal heart sound present Back/Spine/Pelvis Back: back tenderness Thoracic/Lumbar Spine: thoraco-lumbar ROM normal, paraspinal muscle tenderness and thoracic spinal tenderness at T3 and at T4 Neuro General: patient oriented x3, gait normal and moves all extremities Psych Speech and movement: Normal speech and movement present Assessment & Plan Assessment & Plan (1) Thoracic back pain: Code(s): M54.6 - Pain in thoracic spine Qualifiers: Back pain laterality: right Chronicity: acute Qualified Code(s): M54.6 - Pain in thoracic spine Plan: Muscle Sprain/Strain Ordered Muscle relaxants NSAIDs for pain relief. Medications: New ibuprofen 800 mg PO Q8H 30 tabs 0RF M54.6 - Pain in thoracic spine cyclobenzaprine 5 mg PO BEDTIME 14 tabs 0RF M54.6 - Pain in thoracic spine lidocaine 5% leave on most painful area for up to 12 hrs 1 patch topical DAILY 30 ea 0RF M54.6 - Pain in thoracic spine Coding Level of Care Code Est Pt Level 4 (06910) Diagnoses Acute right-sided thoracic back pain M54.6 Back pain laterality: right Chronicity: acute Time Spent (min) 20
[2024-06-22 08:08] VITALS: BP 140/80; PULSE 78; O2SAT 96
== END 2024-06-22 09:15 | disposition home or self-care (01) ==
PROVIDERS: PCP Internal Medicine; Visit Provider Nurse Practitioner Family
DX: M54.6 Pain in thoracic spine (principal)

== ENCOUNTER → 2024-06-22 08:03 | Outpatient (BNVA) | payer OTHER, SELFPAY | PROVIDERS: PCP Internal Medicine | DX: M54.6 Pain in thoracic spine (principal) | CPT/HCPCS: 99212 ==

== ENCOUNTER 2024-07-24 08:10 | Outpatient (REF) | payer OTHER, SELFPAY ==
--- NOTE | ~2024-07-24 | XR_ITS ---
EXAMINATION: XR CHEST CLINICAL INFORMATION: R09.02 - Hypoxemia COMPARISON: 12/19/2023. TECHNIQUE: 2 views of the chest were obtained. FINDINGS: The cardiac, hilar, and mediastinal contours are normal. The lungs are diffusely hyperaerated, however clear bilaterally. There is no pneumothorax or pleural effusion. There is no focal osseous or soft tissue abnormality. XR/XR chest 2V IMPRESSION: Hyperaerated lung parenchyma. No active pulmonary disease. Electronically signed by: Jeramy Wright MD 07/24/2024 09:50 AM EDT
== END 2024-07-24 08:11 | disposition home or self-care (01) ==
LOC: HO.HMGCX 08:10
PROVIDERS: PCP Internal Medicine; Visit Provider Physician Assistant
DX: J45.901 Unspecified asthma with (acute) exacerbation (principal); R09.02 Hypoxemia
CPT/HCPCS: 71046; 94640; 99212

== ENCOUNTER 2024-07-24 08:10 | Outpatient (AMB) | payer OTHER, SELFPAY ==
[2024-07-24 08:56] VITALS: BP 116/70; PULSE 82; TEMP 36.8; O2SAT 90
--- NOTE | 2024-07-24 08:56 | MHC.OFFWIV ---
Intake Vital Signs 07/24/24 08:56 Weight 171 lb BP 116/70 Blood Pressure Location Lt brachial Position Sitting Pulse 82 Temp 98.3 F Temp Source Oral Pulse Oximetry (%) 90 L Oxygen Delivery Method Room Air Intake Visit Reasons: EP ?respiratory infection Intake Note: Patient here for SOB, wheezing and ongoing sinus infection that started a couple of weeks ago. Patient Tobacco Use Status: Former Tobacco user Allergies ciprofloxacin [CIPROFLOXACIN] Allergy (Unknown, Verified 06/22/24 08:19) HIVES Cipro Allergy (Unknown, Uncoded 06/22/24 08:19) hives Do you need a note to return to daycare/school/sports/work: Yes HPI HPI Comments History of Present Illness Details This is a 64-year-old male with a past medical history of hypertension, hyperlipidemia, DVT no longer anticoagulated, chronic sinusitis with nasal polyps, seasonal allergies and asthma presenting for evaluation of shortness for breath. Patient states he has had sinus congestion and cough over the past 2 weeks and comes today because his shortness for breath has worsened significantly over the past 5 days. Patient states he has been using his Ventolin inhaler at least 5 times a day. Patient denies having any fevers, chills, chest pain or hemoptysis. Patient states that he is sitting up at night because he can not breathe well while lying flat. Patient states he does saline rinses and takesa q4 hour antihistamine as well as Claritin daily for management of his seasonal allergies. [facility] Medical History (Updated 07/24/24 @ 10:12 by Yulissa Winston PA-C) Thoracic back pain Encounter for colorectal cancer screening using Cologuard test (~02/03/24) Essential hypertension Elevated blood pressure reading without diagnosis of hypertension History of dental abscess Nicotine dependence, cigarettes, uncomplicated Dysfunction of left rotator cuff Tobacco use disorder Hypercholesterolemia Varicose veins of bilateral lower extremities with pain Surgical History History of umbilical hernia repair History of colon resection (~10/2011) History of reversal of ileostomy (~12/2011) History of right inguinal hernia repair History of colonoscopy History of vein stripping History of nasal polypectomy Family History Father Lymphoma Mother Dementia Other Mental health disorder Social History Household Members: None Housing: House Alcohol intake: current Alcohol intake frequency: a few times a month Patient Tobacco Use Status: Former Tobacco user Tobacco use type: Cigarette e-Cigarette/Vaping Use: Former Use 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 Cognitive needs: No Hearing needs: No Vision needs: Yes (glasses) Review of Systems Const All systems reviewed & are unremarkable except as noted in HPI and below Eyes Reports no additional complaints ENT Reports no additional complaints Card Reports no additional complaints, Denies chest pain, Denies chest pain with activity, Denies leg edema, Reports dyspnea and Reports dyspnea on exertion Resp Reports no additional complaints, Reports cough, Denies hemoptysis, Reports dyspnea, Reports dyspnea on exertion, Denies stridor and Reports wheezing GI Reports no additional complaints Reports no additional complaints Skin/Breast Reports system reviewed and no additional complaints, except as documented Neuro Reports no additional complaints Psych Reports no additional complaints Endo Reports no additional complaints Jose/Lymph Reports no additional complaints Aller/Immun Reports no additional complaints and Reports wheezing Physical Exam Vital Signs: Last Vital Signs Temp 98.3 F 07/24/24 08:56 Pulse 82 07/24/24 08:56 BP 116/70 07/24/24 08:56 Pulse Ox 90 L 07/24/24 08:56 Oxygen Delivery Method Room Air 07/24/24 08:56 Patient is afebrile and hypoxic at 90% on room air. Const General: cooperative, no acute distress, well developed, alert, awake and Physically active Nutritional Appearance: average body habitus Orientation/consciousness: patient oriented x3 Limitations: no limitations HEENT Head: Yes normal to inspection and Yes normocephalic Ears: hearing grossly normal bilaterally, external ears normal, TM's normal bilaterally and EAC's normal General nose exam: Normal external nose present Face and sinus: Yes normal facial exam and Yes sinuses nontender Mouth: Normal oral and palatal mucosa present Throat: Yes posterior oropharynx normal and No postnasal drainage Eyes General: appearance normal, both eyes and all related structures Neck Lymphatic: no lymphadenopathy noted Resp Effort & Inspection: audible wheezes, Actively coughing, not tachypneic and symmetric chest movement Auscultation: wheezes expiratory wheezes and throughout Cardio Rate: regular rate Rhythm: regular rhythm Skin General skin exam: no rashes or lesions noted Neuro General: patient oriented x3 Psych Appearance: grossly normal Mental Status: mental status grossly normal Insight: Good insight present (Psych) Judgement: Good judgement present (Psych) Office Procedures Nebulizer Treatment Nebulizer Treatment [id number] RX initial, or Nebulizer Subsequent Treatment Office Meds ipratropium 0.5 mg-albuterol 3 mg (2.5 mg base)/3 mL nebulization soln Performing Provider: Yulissa Winston PA-C [place] [facility] Administered by: Capri Santacruz RN on 07/24/24 09:51 Dose Route Admin Location Dispensed Lot Number Expiration Date [facility] Organizational Effectiveness Director 3 mL inhalation 3 mL [id number] 05/08/25 17909-673-45 [facility] Results Reviewed Results Reviewed: There are no acute findings noted on chest x-ray. Patient's oxygenation following his nebulizer treatment is 92% on room air, wheezing has significantly improved. Assessment & Plan Assessment & Plan (1) Asthma exacerbation: Comment: Patient's oxygenation and wheezing have improved following a DuoNeb treatment. There are no acute findings noted on chest x-ray. Patient will be discharged on a prednisone taper. Code(s): J45.901 - Unspecified asthma with (acute) exacerbation Qualifiers: Asthma severity: moderate Asthma persistence: unspecified Qualified Code(s): J45.901 - Unspecified asthma with (acute) exacerbation Plan: Prednisone taper as prescribed. Patient is instructed to follow up for any worsening shortness for breath. Orders: Orders XR chest 2V Today R09.02 - Hypoxemia AMB Nebulizer Treatment Today R09.02 - Hypoxemia Medications: New prednisone 20 mg orally 60mg x 3 days, 40mg x 3 days, 20mg x 3 days; 18 tabs 0RF Coding Level of Care Code Est Pt Level 4 (94632) Diagnoses Moderate asthma with exacerbation, unspecified whether persistent J45.901 Asthma severity: moderate Asthma persistence: unspecified CPT Codes Nebulizer Treatment - Nebulizer Treatment, initial or subsequent: [id number] RX initial, or Nebulizer Subsequent Treatment ([id number]) Time Spent (min) 25
== END 2024-07-24 10:21 | disposition home or self-care (01) ==
PROVIDERS: PCP Internal Medicine; Visit Provider Physician Assistant
DX: R09.02 Hypoxemia (principal); J45.901 Unspecified asthma with (acute) exacerbation

== ENCOUNTER → 2024-07-24 09:42 | Outpatient (BNV) | payer OTHER, SELFPAY | PROVIDERS: PCP Internal Medicine; Visit Provider Radiology Diagnostic Radiology | DX: J84.9 Interstitial pulmonary disease, unspecified (principal) | CPT/HCPCS: 71046 ==